=== PATIENT | male | born 1930 | race Caucasian/White ===

== ENCOUNTER → 2016-07-02 | Outpatient (CLI) | payer MEDICARE ==
[~2016-07-02] MED LIST: ALBU.5I NEB; ALBU0.086 NEB; ALBU6.7H INH; ALPR.25 PO; APIX2.5T PO; BYST5TAB2 PO; FURO20 PO; FURO20TA PO; IRON27TA PO; MEMA1TAB PO; MULTTAB22 PO; NAME5TAB2 PO; NEBI5 PO; NITR.4 SL; NITR0.4S SL; PANT40TA3 PO; POTA-163 PO; POTA20IN3 PO; PRESCAP5 PO; PROB1TAB PO; PROBCAP PO; PROT40TA PO; ROSU1TAB8 PO; ROSU20 PO; SERT25TA83 PO; SPIR25TA PO; SYMB160A INH; TAB-TAB PO; TEST200I12 IM; TEST200I13 IM; TRAZ50TA12 PO; TRAZ50TA4 PO; UMEC1AER INH; VENTAER INH; VITA200017 PO; VITRTAB3 PO; Z.0.OXYGEN INH
--- NOTE | 2016-07-03 09:32 | RSPPFT ---
DATE OF PROCEDURE: 07/02/16 COMMENTS: VOLUMES DYNAMIC: FVC mildly reduced; FEV1 moderately reduced. STATIC: FRC, RV and TLC normal. FLOWS: FEV1% moderately reduced; FEF 25-75 severely reduced. DIFFUSION: Severely reduced. FLOW VOLUME LOOP: Pattern of variable intrathoracic airways obstruction. IMPRESSION: Moderately severe obstructive ventilatory defect with a severe reduction in diffusion consistent with emphysema. Airways resistance is increased. Minimal change post-bronchodilator noted.
== END ==
LOC: PHRSP 10:34
PROVIDERS: ATTEND Internal Medicine
DX: J44.9 Chronic obstructive pulmonary disease, unspecified (principal); R06.02 Shortness of breath
CPT/HCPCS: 94060; 94620; 94726; 94729

== ENCOUNTER 2016-07-09 12:52 | Inpatient (IN) | payer MEDICARE ==
[2016-07-09] VITALS (8 sets, daily range): BP systolic 116–177; BP diastolic 70–112; PULSE 80–108; RESP 15–24; TEMP 96.9–98.7; O2SAT 77–100
[~2016-07-09] VITALS: Ht 175.3 cm; Wt 68.4 kg
[~2016-07-09 12:52] MED LIST changes: -ALBU.5I NEB; -BYST5TAB2 PO; -FURO20TA PO; -MEMA1TAB PO; -MULTTAB22 PO; -NITR0.4S SL; -PANT40TA3 PO; -POTA-163 PO; -PROBCAP PO; -ROSU20 PO; -SERT25TA83 PO; -SYMB160A INH; -TEST200I12 IM; -TRAZ50TA12 PO; -VENTAER INH; -VITRTAB3 PO
--- NOTE | 2016-07-09 13:10 | PD ---
HPI Chief Complaint: Respiratory Distress Time Seen by Provider: 12:58 Travel History International Travel<30 days: No Contact w/Intl Traveler<30days: No Traveled to known affect area: No History of Present Illness HPI Patient is an 86 year old male with history of COPD, hypertension, hyperlipidemia, CAD with hx of CABG, CHF, GERD, A. fib, stage III renal failure , presents to emergency room with complaints of COPD exacerbation. Patient reports that he has been feeling SOB for a long time and does use 2LO2 at night time. Patient reports that his shortness of breath is getting worse, reports that today, he has been having dyspnea on exertion. Reports that he had to use his home oxygen today as he felt sob. Patient reports that he did take a neb treatment prior to coming to ER with no relief of symptoms. Patient denies cough /congestion. Denies fever/chills. Reports that his chest has been feeling tight today. Patient's software quality test engineer is Dr. Smith Patient's radio frequency design engineer is Dr. 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) Psychiatric: No Reproductive: No Respiratory: Yes Sleep Apnea: No Thyroid Disease: No Past Surgical History Abdominal Surgery: No AICD: No Body Medical Devices: CARDIAC STENTS Cardiac Surgery: Yes (CABG X2, CABGX3) Coronary Artery Bypass Graft: Yes Ear Surgery: No Endocrine Surgery: No Eye Surgery: Yes (BILATERAL CATARACT) Genitourinary Surgery: Yes (PROSTATE REMOVED) Joint Replacement: No Oral Surgery: Yes (TONSILLECTOMY) Pacemaker: No Thoracic Surgery: Yes (LEFT THORACOTOMY--LOWER LOBE REMOVED) Other Surgery: Yes (MELANOMA) Social History Alcohol Use: No Tobacco Use: No Substance Use: No Allergies-Medications (Allergen,Severity, Reaction): Coded Allergies: Duoneb (Verified Allergy, Severe, SHAKY, 10/23/15) Iodine (Verified Allergy, Severe, Anaphylaxis, 10/23/15) ONLY IN SHRIMP, IS NOT ALLERGIC TO IODINATED CONTRAST PER PATIENT, IS NOT ALLERGIC TO TOPICAL BETADINE PER PATIENT. Lipitor (Unverified Allergy, Severe, SOB, JOINT PAIN, 10/23/15) Shrimp (Verified Allergy, Severe, SOB, VOMITING, 10/23/15) Wasp (Verified Allergy, Severe, Anaphylaxis, 10/23/15) Diovan (Unverified Allergy, Intermediate, PT DOESNT REMEMBER REACTION, ) Reported Meds & Prescriptions Reported Meds & Active Scripts Active Reported Testosterone Cypionate Inj (Testosterone Cypionate) 200 Mg/Ml Inj 200 Mg IM Q28D Multi For Him (Multiple Vitamins W/ Minerals) 1 Tab Tab 1 Tab PO DAILY Probiotic Mature Adult (Probiotic Product) 1 Cap Cap 1 Cap PO DAILY Albuterol Neb (Albuterol Sulfate) 2.5 Mg/0.5 Ml Neb 2.5 Mg NEB Q6HR NEB Note: The Albuterol Sulfate Inhalation Solution is concentrated and must be diluted. Read complete instructions carefully before using. Ventolin Hfa 18 GM Inh (Albuterol Sulfate) 90 Mcg/Act Aer 1 Puff INH Q4H PRN Anoro Ellipta Inh (Umeclidinium/Vilanterol) 62.5-25 Mcg/Act Aero 1 Puff INH DAILY Trazodone (Trazodone HCl) 50 Mg Tab 50 Mg PO HS Memantine 5 Mg Tab 5 Mg PO BID Sertraline (Sertraline HCl) 25 Mg Tab 25 Mg PO DAILY Vitron-C (Iron-Vitamin C) 65-125 Mg Tab 1 Tab PO DAILY Nitrostat SL (Nitroglycerin) 0.4 Mg Subl 0.4 Mg SL DIRECTED PRN 1 tablet under the tongue as needed for chest pain. Repeat every 5 minutes for a total of 3 DOSES or call 911 if NO relief. Potassium Chloride ER (Potassium Chloride) 20 Meq Tab 20 Meq PO DAILY Pantoprazole (Pantoprazole Sodium) 40 Mg Tab 40 Mg PO DAILY Bystolic (Nebivolol) 5 Mg Tab 5 Mg PO DAILY Crestor (Rosuvastatin Calcium) 20 Mg Tab 20 Mg PO DAILY Eliquis (Apixaban) 2.5 Mg Tab 2.5 Mg PO BID Furosemide 20 Mg Tab 20 Mg PO [id number] Spironolactone 25 Mg Tab 25 Mg PO // Review of Systems General / Constitutional: No: Fever Eyes: No: Visual changes HENT: No: Headaches Cardiovascular: Positive: Chest Pain or Discomfort Respiratory: Positive: Shortness of Breath, Wheezing, No: Cough Gastrointestinal: No: Abdominal Pain Genitourinary: No: Dysuria Musculoskeletal: No: Pain Skin: No Rash Neurologic: No: Weakness Psychiatric: No: Depression Endocrine: No: Polydipsia Hematologic/Lymphatic: No: Easy Bruising Physical Exam Narrative GENERAL: moderate distress SKIN: Focused skin assessment warm/dry. HEAD: Atraumatic. Normocephalic. EYES: Pupils equal and round. No scleral icterus. No injection or drainage. ENT: No nasal bleeding or discharge. Mucous membranes pink and moist. NECK: Trachea midline. No JVD. CARDIOVASCULAR: Regular rate and rhythm. No murmur appreciated. RESPIRATORY: Patient with scattered wheezing on exam, decreased breath sounds to lung bases GASTROINTESTINAL: Abdomen soft, non-tender, nondistended. Hepatic and splenic margins not palpable. MUSCULOSKELETAL: No obvious deformities. No clubbing. No cyanosis. No edema. NEUROLOGICAL: Awake and alert. No obvious cranial nerve deficits. Motor grossly within normal limits. Normal speech. PSYCHIATRIC: Appropriate mood and affect; insight and judgment normal. Data Data Last Documented VS Vital Signs Date Time Temp Pulse Resp B/P Pulse Ox O2 Delivery O2 Flow Rate FiO2 07/09/16 13:30 80 20 144/70 98 Nasal Cannula 2 07/09/16 12:55 98.7 Orders Complete Blood Count With Diff (07/09/16 13:04) Comprehensive Metabolic Panel (07/09/16 13:04) B-Type Natriuretic Peptide (07/09/16 13:04) Act Partial Throm Time (Ptt) (07/09/16 13:04) Prothrombin Time / Inr (Pt) (07/09/16 13:04) Magnesium (Mg) (07/09/16 13:04) Ckmb (Isoenzyme) Profile (07/09/16 13:04) Troponin I (07/09/16 13:04) Arterial Blood Gas (Abg) (07/09/16 13:04) Urinalysis - C+S If Indicated (07/09/16 13:04) Influenzae A/B Antigen (07/09/16 13:04) Iv Access Insert/Monitor (07/09/16 13:04) Electrocardiogram (07/09/16 13:04) Ecg Monitoring (07/09/16 13:04) Oximetry (07/09/16 13:04) Chest, Single Ap (07/09/16 13:04) Sodium Chloride 0.9% Flush (Ns Flush) (07/09/16 13:15) Methylprednisolone So Succ Inj (Solumedr (07/09/16 13:15) Albuterol Neb (Albuterol Neb) (07/09/16 13:15) Furosemide Inj (Lasix Inj) (07/09/16 14:00) CKMB (07/09/16 13:21) CKMB% (07/09/16 13:21) Levofloxacin 750 Mg Premix Inj (Levaquin (07/09/16 14:30) Labs Laboratory Tests Test 07/09/16 07/09/16 13:21 13:30 White Blood Count 6.8 TH/MM3 Red Blood Count 3.71 MIL/MM3 Hemoglobin 10.3 GM/DL Hematocrit 31.9 % Mean Corpuscular Volume 86.0 FL Mean Corpuscular Hemoglobin 27.7 PG Mean Corpuscular Hemoglobin 32.2 % Concent Red Cell Distribution Width 16.4 % Platelet Count 267 TH/MM3 Mean Platelet Volume 8.4 FL Neutrophils (%) (Auto) 68.0 % Lymphocytes (%) (Auto) 15.0 % Monocytes (%) (Auto) 13.7 % Eosinophils (%) (Auto) 2.9 % Basophils (%) (Auto) 0.4 % Neutrophils # (Auto) 4.7 TH/MM3 Lymphocytes # (Auto) 1.0 TH/MM3 Monocytes # (Auto) 0.9 TH/MM3 Eosinophils # (Auto) 0.2 TH/MM3 Basophils # (Auto) 0.0 TH/MM3 CBC Comment DIFF FINAL Differential Comment Prothrombin Time 12.7 SEC Prothromb Time International 1.1 RATIO Ratio Activated Partial 31.7 SEC Thromboplast Time Sodium Level 141 MEQ/L Potassium Level 4.5 MEQ/L Chloride Level 105 MEQ/L Carbon Dioxide Level 27.4 MEQ/L Anion Gap 9 MEQ/L Blood Urea Nitrogen 22 MG/DL Creatinine 1.70 MG/DL Estimat Glomerular Filtration 38 ML/MIN Rate Random Glucose 106 MG/DL Calcium Level 9.0 MG/DL Magnesium Level 2.2 MG/DL Total Bilirubin 0.7 MG/DL Aspartate Amino Transf 22 U/L (AST/SGOT) Alanine Aminotransferase 28 U/L (ALT/SGPT) Alkaline Phosphatase 82 U/L Total Creatine Kinase 125 U/L Creatine Kinase MB 3.5 NG/ML Troponin I 0.03 NG/ML B-Type Natriuretic Peptide 223 PG/ML Total Protein 7.4 GM/DL Albumin 3.8 GM/DL Blood Gas Puncture Site RT RADIAL Blood Gas Patient Temperature 98.6 Blood Gas HCO3 23 mmol/L Blood Gas Base Excess -1.0 mmol/L Blood Gas Oxygen Saturation 87 % Arterial Blood pH 7.42 Arterial Blood Partial 35 mmHG Pressure CO2 Arterial Blood Partial 60 mmHG Pressure O2 Arterial Blood Oxygen Content 11.7 Vol % Arterial Blood 2.2 % Carboxyhemoglobin Arterial Blood Methemoglobin 1.0 % Blood Gas Hemoglobin 9.5 G/DL Oxygen Delivery Device ROOM AIR Blood Gas Inspired Oxygen 21 % MDM Medical Decision Making Medical Screen Exam Complete: Yes Emergency Medical Condition: Yes Interpretation(s) Vital Signs Date Time Temp Pulse Resp B/P Pulse Ox O2 Delivery O2 Flow Rate FiO2 07/09/16 12:55 98.7 86 24 177/112 77 Differential Diagnosis COPD exacerbation, GERD, ACS, pneumothorax, pneumonia, influenza Narrative Course Patient is a 86 year old male who presents to ER with complaint of shortness of breath. Patient reports that he "always feels sob" but reports that symptoms were worse today. Patient reports that he felt so sob, he had to use his home oxygen as he only uses this at night time. Reports no cough/congestion. Reports that his chest does feel tight. Reports no fever/chills. Patient was hypoxic upon arrival to ER, pt's oxygen saturation was 77 on 3LNC, when patient was brought back to the ER, patient was placed on non-rebreather and pulse ox went up to 100% Patient is wheezing on exam, decreased breath sounds at lung bases. IV steroids , neb treatments ordered. patient reports that he can't take duonebs - he is unsure why, but reports that he is able to tolerate albuterol treatments. Patient was placed on cardiac monitor technician, labs as well as studies ordered including xray of chest. Laboratory Tests Test 07/09/16 07/09/16 13:21 13:30 White Blood Count 6.8 TH/MM3 (4.0-11.0) Red Blood Count 3.71 MIL/MM3 (4.50-5.90) Hemoglobin 10.3 GM/DL (13.0-17.0) Hematocrit 31.9 % (39.0-51.0) Mean Corpuscular Volume 86.0 FL (80.0-100.0) Mean Corpuscular Hemoglobin 27.7 PG (27.0-34.0) Mean Corpuscular Hemoglobin 32.2 % Concent (32.0-36.0) Red Cell Distribution Width 16.4 % (11.6-17.2) Platelet Count 267 TH/MM3 (150-450) Mean Platelet Volume 8.4 FL (7.0-11.0) Neutrophils (%) (Auto) 68.0 % (16.0-70.0) Lymphocytes (%) (Auto) 15.0 % (9.0-44.0) Monocytes (%) (Auto) 13.7 % (0.0-8.0) Eosinophils (%) (Auto) 2.9 % (0.0-4.0) Basophils (%) (Auto) 0.4 % (0.0-2.0) Neutrophils # (Auto) 4.7 TH/MM3 (1.8-7.7) Lymphocytes # (Auto) 1.0 TH/MM3 (1.0-4.8) Monocytes # (Auto) 0.9 TH/MM3 (0-0.9) Eosinophils # (Auto) 0.2 TH/MM3 (0-0.4) Basophils # (Auto) 0.0 TH/MM3 (0-0.2) CBC Comment DIFF FINAL Differential Comment Prothrombin Time 12.7 SEC (9.8-11.6) Prothromb Time International 1.1 RATIO Ratio Activated Partial 31.7 SEC Thromboplast Time (24.3-30.1) Sodium Level 141 MEQ/L (136-145) Potassium Level 4.5 MEQ/L (3.5-5.1) Chloride Level 105 MEQ/L (98-107) Carbon Dioxide Level 27.4 MEQ/L (21.0-32.0) Anion Gap 9 MEQ/L (5-15) Blood Urea Nitrogen 22 MG/DL (7-18) Creatinine 1.70 MG/DL (0.60-1.30) Estimat Glomerular Filtration 38 ML/MIN (>89) Rate Random Glucose 106 MG/DL (74-106) Calcium Level 9.0 MG/DL (8.5-10.1) Magnesium Level 2.2 MG/DL (1.5-2.5) Total Bilirubin 0.7 MG/DL (0.2-1.0) Aspartate Amino Transf 22 U/L (15-37) (AST/SGOT) Alanine Aminotransferase 28 U/L (12-78) (ALT/SGPT) Alkaline Phosphatase 82 U/L (45-117) Total Creatine Kinase 125 U/L (39-308) Troponin I 0.03 NG/ML (0.02-0.05) B-Type Natriuretic Peptide 223 PG/ML (0-100) Total Protein 7.4 GM/DL (6.4-8.2) Albumin 3.8 GM/DL (3.4-5.0) Blood Gas Puncture Site RT RADIAL Blood Gas Patient Temperature 98.6 Blood Gas HCO3 23 mmol/L (22-26) Blood Gas Base Excess -1.0 mmol/L (-2-2) Blood Gas Oxygen Saturation 87 % (90-100) Arterial Blood pH 7.42 (7.380-7.420) Arterial Blood Partial 35 mmHG (38-42) Pressure CO2 Arterial Blood Partial 60 mmHG Pressure O2 (61-120) Arterial Blood Oxygen Content 11.7 Vol % (12.0-20.0) Arterial Blood 2.2 % (0-4) Carboxyhemoglobin Arterial Blood Methemoglobin 1.0 % (0-2) Blood Gas Hemoglobin 9.5 G/DL (12.0-16.0) Oxygen Delivery Device ROOM AIR Blood Gas Inspired Oxygen 21 % Last Impressions Chest X-Ray 07/09/16 1304 Signed Impressions: Service Date/Time: Saturday, July 09, 2016 13:16 - CONCLUSION: CHF with pulmonary edema. Franklin Jovel MD Patient re-evaluated, feeling much better at this time. Currently 98% on 2L NC after treatments and iv lasix case reviewed with Dr. Souza who accepts pt to service Critical Care Narrative Aggregate critical care time was 45 minutes. Time to perform other separately billable procedures was not included in the critical care time. My time did not include minutes spent treating any other patients simultaneously or on activities that did not directly contribute to the patient's treatment. The services I provided to this patient were to treat and/or prevent clinically significant deterioration that could result in: , decompensation, deterioration I provided critical care services requiring my management, as noted below: Chart data review, documentation time, medication orders and management, vital sign assessments/reviewing monitor data, ordering and reviewing lab tests, ordering and interpreting/reviewing x-rays and diagnostic studies, care of the patient and discussion of the patient with the admitting physicians. Diagnosis Primary Impression: Hypoxia Additional Impressions: COPD exacerbation CHF (congestive heart failure) Admitting Information Admitting Physician Requests: Irina Benites DO July 09, 2016 13:10
[2016-07-09] MEDS: RESP: ALBUTEROL 2.5 MG/3 ML NEB (SCH) INH ×2 (13:12→13:13)
[2016-07-09] MEDS ORDERED: methylPREDNISolone SOD SUCC 125 MG/2 ML VIAL IVP ONE (13:15)
--- NOTE | 2016-07-09 13:30 | RADHPO ---
EXAM DATE/TIME: 07/09/2016 13:16 [facility] COMPARISON: CHEST SINGLE AP, September 19, 2015, 13:39. INDICATIONS : Short of breath MEDICAL HISTORY : Hypercholesterolemia. Hypertension Chronic obstructive pulmonary disease. SURGICAL HISTORY : CABG. Cardiac catherization ENCOUNTER: Initial ACUITY: 2 days PAIN SCORE: 2/10 LOCATION: Bilateral chest FINDINGS: A single view of the chest demonstrates cardiomegaly with bibasilar airspace disease and pulmonary ed macy. Fluid in the right fissures. Osseous structures are intact. CONCLUSION: CHF with pulmonary edema. Franklin Jovel MD on July 09, 2016 at 13:24 Board Certified Radiologist. This report was verified electronically.
[2016-07-09 13:39] LABS: BLOOD GAS CARBOXYHEMOGLOBIN 2.2 % (0-4); BLOOD GAS HCO3 23 mmol/L (22-26); BLOOD GAS O2 HGB SATURATION 87 % (90-100); BLOOD GAS OXYGEN CONTENT 11.7 Vol % (12.0-20.0); BLOOD GAS PCO2 35 mmHG (38-42); BLOOD GAS PO2 60 mmHG (61-120); BLOOD GAS TOTAL HGB 9.5 G/DL (12.0-16.0); CRITICAL VALUE YES; FIO2 21 %; OXYGEN DEVICE ROOM AIR; TEMP CORR TO 98.6
[2016-07-09 13:40] LABS: DRAW SITE RT RADIAL; NUMBER OF ARTERIAL PUNCTURES 1; STAT YES; ULNAR PULSE PRESENT
[2016-07-09] MEDS ORDERED: NITR0.4S SL (13:41)
[2016-07-09] MEDS ORDERED: PANT40TA3 PO (13:41)
[2016-07-09] MEDS ORDERED: APIX2.5T PO (13:41)
[2016-07-09] MEDS ORDERED: TEST200I12 IM (13:41)
[2016-07-09] MEDS ORDERED: POTA-163 PO (13:41)
[2016-07-09] MEDS ORDERED: MULTTAB22 PO (13:41)
[2016-07-09] MEDS ORDERED: PROBCAP PO (13:41)
[2016-07-09] MEDS ORDERED: SPIR25TA PO (13:41)
[2016-07-09] MEDS ORDERED: UMEC1AER INH (13:41)
[2016-07-09] MEDS ORDERED: FURO20TA PO (13:41)
[2016-07-09] MEDS ORDERED: VENTAER INH (13:41)
[2016-07-09] MEDS ORDERED: VITRTAB3 PO (13:41)
[2016-07-09] MEDS ORDERED: TRAZ50TA12 PO (13:41)
[2016-07-09] MEDS ORDERED: SERT25TA83 PO (13:41)
[2016-07-09] MEDS ORDERED: MEMA1TAB PO (13:41)
[2016-07-09] MEDS ORDERED: BYST5TAB2 PO (13:41)
[2016-07-09] MEDS ORDERED: ROSU20 PO (13:41)
[2016-07-09] MEDS ORDERED: ALBU.5I NEB (13:41)
[2016-07-09 13:42] LABS: AUTOMATED NEUTROPHIL # 4.7 TH/MM3 (1.8-7.7); BASOPHIL % 0.4 % (0.0-2.0); EOSINOPHIL # 0.2 TH/MM3 (0-0.4); EOSINOPHIL % 2.9 % (0.0-4.0); HEMATOCRIT 31.9 % (39.0-51.0); HEMO FLAGS DIFF FINAL; MEAN CORPUSCULAR HEMOGLOBIN 27.7 PG (27.0-34.0); MEAN CORPUSCULAR HGB CONC 32.2 % (32.0-36.0); MONO % 13.7 % (0.0-8.0); PLATELET COUNT 267 TH/MM3 (150-450); RED BLOOD COUNT 3.71 MIL/MM3 (4.50-5.90); RED CELL DISTRIBUTION WIDTH 16.4 % (11.6-17.2); WHITE BLOOD COUNT 6.8 TH/MM3 (4.0-11.0)
[2016-07-09] MEDS: SODIUM CHLORIDE 0.9% FLUSH 10 ML FLUSH IVF PRN ×2 (13:44→14:01)
[2016-07-09 13:51] LABS: CHLORIDE 105 MEQ/L (98-107); POTASSIUM 4.5 MEQ/L (3.5-5.1); SODIUM (NA) 141 MEQ/L (136-145)
[2016-07-09 13:55] LABS: ANION GAP 9 MEQ/L (5-15); APTT (PATIENT) 31.7 SEC (24.3-30.1); BICARBONATE 27.4 MEQ/L (21.0-32.0); BLOOD UREA NITROGEN 22 MG/DL (7-18); INTERNATIONAL NORMALIZED RATIO 1.1 RATIO; MAGNESIUM 2.2 MG/DL (1.5-2.5); PROTHROMBIN TIME - PATIENT 12.7 SEC (9.8-11.6)
[2016-07-09 13:58] LABS: ALT (GPT) 28 U/L (12-78); AST (GOT) 22 U/L (15-37); GLOMERULAR FILTRATION RATE 38 ML/MIN (>89)
[2016-07-09 13:59] LABS: TOTAL BILIRUBIN ADULT 0.7 MG/DL (0.2-1.0)
[2016-07-09 14:00] LABS: CREATINE KINASE 125 U/L (39-308)
[2016-07-09] MEDS ORDERED: FUROSEMIDE 100 MG/10 ML VIAL IV PUSH ONE (14:00)
[2016-07-09 14:01] LABS: ALKALINE PHOSPHATASE 82 U/L (45-117)
[2016-07-09 14:14] LABS: CKMB 3.5 NG/ML (0.5-3.6)
[2016-07-09 14:20] LABS: BLOOD, URINE NEG (NEG); GLUCOSE,URINE NEG (NEG); KETONE, URINE NEG (NEG); NITRITE,URINE NEG (NEG); PH, URINE 5.5 (5.0-8.5)
[2016-07-09 14:28] LABS: COMMENT (UR) CULT NOT INDICATED; CULTURE IF INDICATED CULT NOT INDICATED; METHOD OF COLLECTION CLEAN CATCH; RBC, URINE 0-3 /hpf (0-3); SQUAMOUS EPITHELIAL CELL URINE 0-5 /hpf (0-5); URINE COLOR YELLOW (YELLW/STRAW); WBC, URINE 0-2 /hpf (0-5)
[2016-07-09] MEDS ORDERED: LEVOFLOXACIN 750 MG PREMIX INJ 150 ML IV ONE (14:30)
[2016-07-09] MEDS ORDERED: ACETAMINOPHEN 325 MG TAB PO PRN (14:45)
[2016-07-09] MEDS ORDERED: SODIUM CHLORIDE 0.9% FLUSH 10 ML FLUSH IV FLUSH PRN (14:45)
[2016-07-09] MEDS ORDERED: BISACODYL 10 MG SUPP RECTAL PRN (14:45)
[2016-07-09] MEDS ORDERED: ONDANSETRON HCL 4 MG/2 ML VIAL IVP PRN (14:45)
[2016-07-09] MEDS ORDERED: NALOXONE HCL 0.4 MG/ML AMP IV PRN (14:45)
[2016-07-09] MEDS ORDERED: SENNOSIDES 8.6 MG TAB PO PRN (14:45)
[2016-07-09] MEDS ORDERED: RESP: ALBUTEROL 2.5 MG/IPRATROPIUM 0.5 MG NEB (PRN) NEB (15:00)
--- NOTE | 2016-07-09 15:09 | HHI.HP ---
[facility] Primary Care Physician Mandi Calvert MD Admission Diagnosis COPD exacerbation, hypoxia Diagnoses: (1) Acute on chronic systolic congestive heart failure Diagnosis: Principal (2) Accelerated hypertension Diagnosis: Principal (3) Hypoxia Diagnosis: Principal (4) Chronic respiratory failure with hypoxia Diagnosis: Secondary (5) Chronic obstructive pulmonary disease Diagnosis: Secondary (6) Chronic atrial fibrillation Diagnosis: Secondary Chief Complaint: Shortness of breath and dyspnea on exertion Travel History International Travel<30 Days: No Contact w/Intl Traveler <30 Da: No Traveled to Known Affected Are: No History of Present Illness 86 year-old male with rather extensive medical history of hypertension , hyperlipidemia, coronary artery disease, history myocardial infarction, status post 2 open heart surgeries, systolic congestive heart failure, moderate to severe chronic obstructive pulmonary disease, chronic hypoxic respiratory failure, chronic kidney disease stage III, gastroesophageal reflux who presented to hospital because of shortness of breath and dyspnea. Patient has had recent workup done in outpatient setting by his operating room specialist Dr. Barajas. The patient and his daughter indicated that he had echocardiogram done at that time. Patient has had increase in his renal functions in which he was notified to increase his fluid intake. Patient states that he is drinking at least 3-20 ounce bottles of water daily. For the last couple days the patient has noted significant shortness of breath. This progressively gotten to the point where he cannot get up and walk because he has significant dyspnea on exertion. Patient does have chronic respiratory failure is on oxygen at home. Mainly at night, however over the last week he has been using it more often during the day whenever he exerts himself. He denies any fever, cough, congestion, sputum production, chest pain, lower extremity edema. Patient came to emergency department for evaluation and patient had accelerated hypertension, hypoxia, chest x-ray with pulmonary edema. Patient was given Lasix 80 mg IV emergency department with significant relief. Patient states that he is feeling much better this time. His respiratory status did require him to be on nonrebreather at 100% on presentation, however he is now down to 2 L nasal cannula at 98% O2 saturations. Review of Systems Constitutional: DENIES: Diaphoretic episodes, Fatigue, Fever, Weight gain, Weight loss, Chills, Dizziness, Change in appetite, Night Sweats Eyes: DENIES: Blurred vision, Diplopia, Eye inflammation, Eye pain, Vision loss , Double Vision Ears, nose, mouth, throat: DENIES: Vertigo, Nasal discharge, Throat pain, Ear Pain, Running Nose, Sinus Pain Respiratory: COMPLAINS OF: Shortness of breath, DENIES: Apneas, Cough, Snoring , Wheezing, Hemoptysis, Sputum production Cardiovascular: COMPLAINS OF: Dyspnea on Exertion, DENIES: Chest pain, Palpitations, Syncope, Lower Extremity Edema, Orthopnea Gastrointestinal: DENIES: Abdominal pain, Black stools, Bloody stools, Constipation, Diarrhea, Nausea, Vomiting, Difficulty Swallowing, Anorexia Neurologic: DENIES: Abnormal gait, Headache, Localized weakness, Paresthesias, Seizures, Speech Problems, Tremor, Poor Balance Past Family Social History Past Medical History Hypertension Hyperlipidemia Chronic atrial fibrillation Chronic systolic congestive heart failure History myocardial infarction Coronary artery disease Chronic obstructive pulmonary disease Gastroesophageal reflux Loera's esophagus Chronic kidney disease stage III Past Surgical History Tonsillectomy Facial reconstruction Cardiac catheterization with stent placement 2004 Allow cataract surgery Radical prostatectomy Melanoma removal Coronary bypass surgery 2 Left left lower lung lobectomy Reported Medications Reported Meds & Active Scripts Active Reported Testosterone Cypionate Inj (Testosterone Cypionate) 200 Mg/Ml Inj 200 Mg IM Q28D Multi For Him (Multiple Vitamins W/ Minerals) 1 Tab Tab 1 Tab PO DAILY Probiotic Mature Adult (Probiotic Product) 1 Cap Cap 1 Cap PO DAILY Albuterol Neb (Albuterol Sulfate) 2.5 Mg/0.5 Ml Neb 2.5 Mg NEB Q6HR NEB Note: The Albuterol Sulfate Inhalation Solution is concentrated and must be diluted. Read complete instructions carefully before using. Ventolin Hfa 18 GM Inh (Albuterol Sulfate) 90 Mcg/Act Aer 1 Puff INH Q4H PRN Anoro Ellipta Inh (Umeclidinium/Vilanterol) 62.5-25 Mcg/Act Aero 1 Puff INH DAILY Trazodone (Trazodone HCl) 50 Mg Tab 50 Mg PO HS Memantine 5 Mg Tab 5 Mg PO BID Sertraline (Sertraline HCl) 25 Mg Tab 25 Mg PO DAILY Vitron-C (Iron-Vitamin C) 65-125 Mg Tab 1 Tab PO DAILY Nitrostat SL (Nitroglycerin) 0.4 Mg Subl 0.4 Mg SL DIRECTED PRN 1 tablet under the tongue as needed for chest pain. Repeat every 5 minutes for a total of 3 DOSES or call 911 if NO relief. Potassium Chloride ER (Potassium Chloride) 20 Meq Tab 20 Meq PO DAILY Pantoprazole (Pantoprazole Sodium) 40 Mg Tab 40 Mg PO DAILY Bystolic (Nebivolol) 5 Mg Tab 5 Mg PO DAILY Crestor (Rosuvastatin Calcium) 20 Mg Tab 20 Mg PO DAILY Eliquis (Apixaban) 2.5 Mg Tab 2.5 Mg PO BID Furosemide 20 Mg Tab 20 Mg PO Spironolactone 25 Mg Tab 25 Mg PO // Allergies: Coded Allergies: Duoneb (Verified Allergy, Severe, SHAKY, 10/23/15) Iodine (Verified Allergy, Severe, Anaphylaxis, 10/23/15) ONLY IN SHRIMP, IS NOT ALLERGIC TO IODINATED CONTRAST PER PATIENT, IS NOT ALLERGIC TO TOPICAL BETADINE PER PATIENT. Lipitor (Unverified Allergy, Severe, SOB, JOINT PAIN, 10/23/15) Shrimp (Verified Allergy, Severe, SOB, VOMITING, 10/23/15) Wasp (Verified Allergy, Severe, Anaphylaxis, 10/23/15) Diovan (Unverified Allergy, Intermediate, PT DOESNT REMEMBER REACTION, ) Family History Reviewed and patient does not know his mother and father's medical history Social History Patient quit smoking in [address] to have his first bypass surgery. Denies any alcohol or illicit drugs Physical Exam Vital Signs Vital Signs Date Time Temp Pulse Resp B/P Pulse Ox O2 Delivery O2 Flow Rate FiO2 07/09/16 13:30 80 20 144/70 98 Nasal Cannula 2 07/09/16 13:15 100 Non-Rebreather 07/09/16 13:00 100 Non-Rebreather 07/09/16 12:55 98.7 86 24 177/112 77 Physical Exam GENERAL: Well-developed, well-nourished, in no acute distress. alert and orientated HEENT: Head is normocephalic without any lesions or masses noted. Facial features are symmetric. Eyes: Pupils equal round reactive to light. Extraocular muscles are intact. Conjunctivae were clear. Oropharyngeal: Pharynx without any erythema edema. Tongue is midline without deviation. Buccal mucosa is moist without any masses or lesions NECK: Supple without any masses. Trachea midline no deviation. No JVD, no bruits are appreciated CARDIAC: Regular rhythm, regular rate. S1/S2 are heard. 2/6 ejection murmur noted in aortic region gallops or rubs. LUNGS: Mild wheeze noted in the right lower lung field, left lung field appreciated fine crackles, no rhonchi. No use of accessory muscles on inspiration or expiration. ABDOMEN: Soft, nontender. Nondistended. Bowel sounds heard in all 4 quadrants. No organomegaly or masses. Negative rebound, negative guarding EXTREMITIES: No edema, pulses are equal bilaterally. No cyanosis or clubbing NEUROLOGY: Mood and affect appear appropriate. Cranial nerves II through XII grossly intact. Muscle strength 5/5 in upper and lower extremities bilaterally. Deep tendon reflexes are 2+ in upper and lower extremities bilaterally. Laboratory Laboratory Tests Test 07/09/16 07/09/16 07/09/16 13:21 13:30 14:11 White Blood Count 6.8 Red Blood Count 3.71 Hemoglobin 10.3 Hematocrit 31.9 Mean Corpuscular Volume 86.0 Mean Corpuscular Hemoglobin 27.7 Mean Corpuscular Hemoglobin 32.2 Concent Red Cell Distribution Width 16.4 Platelet Count 267 Mean Platelet Volume 8.4 Neutrophils (%) (Auto) 68.0 Lymphocytes (%) (Auto) 15.0 Monocytes (%) (Auto) 13.7 Eosinophils (%) (Auto) 2.9 Basophils (%) (Auto) 0.4 Neutrophils # (Auto) 4.7 Lymphocytes # (Auto) 1.0 Monocytes # (Auto) 0.9 Eosinophils # (Auto) 0.2 Basophils # (Auto) 0.0 CBC Comment DIFF FINAL Differential Comment Prothrombin Time 12.7 Prothromb Time International 1.1 Ratio Activated Partial 31.7 Thromboplast Time Sodium Level 141 Potassium Level 4.5 Chloride Level 105 Carbon Dioxide Level 27.4 Anion Gap 9 Blood Urea Nitrogen 22 Creatinine 1.70 Estimat Glomerular Filtration 38 Rate Random Glucose 106 Calcium Level 9.0 Magnesium Level 2.2 Total Bilirubin 0.7 Aspartate Amino Transf 22 (AST/SGOT) Alanine Aminotransferase 28 (ALT/SGPT) Alkaline Phosphatase 82 Total Creatine Kinase 125 Creatine Kinase MB 3.5 Troponin I 0.03 B-Type Natriuretic Peptide 223 Total Protein 7.4 Albumin 3.8 Blood Gas Puncture Site RT RADIAL Blood Gas Patient Temperature 98.6 Blood Gas HCO3 23 Blood Gas Base Excess -1.0 Blood Gas Oxygen Saturation 87 Arterial Blood pH 7.42 Arterial Blood Partial 35 Pressure CO2 Arterial Blood Partial 60 Pressure O2 Arterial Blood Oxygen Content 11.7 Arterial Blood 2.2 Carboxyhemoglobin Arterial Blood Methemoglobin 1.0 Blood Gas Hemoglobin 9.5 Oxygen Delivery Device ROOM AIR Blood Gas Inspired Oxygen 21 Urine Collection Type CLEAN CATCH Urine Color YELLOW Urine Turbidity CLEAR Urine pH 5.5 Urine Specific [place] 1.009 Urine Protein NEG Urine Glucose (UA) NEG Urine Ketones NEG Urine Occult Blood NEG Urine Nitrite NEG Urine Bilirubin NEG Urine Leukocyte Esterase NEG Urine RBC 0-3 Urine WBC 0-2 Urine Squamous Epithelial 0-5 Cells Microscopic Urinalysis Comment CULT NOT INDICATED Urine Collection Time 14:11 Date/Time Procedure Status Source Growth 07/09/16 13:12 Influenza Types A,B Antigen (DORITA) - Final Complete Nasal Aspirate NEGATIVE FOR FLU A AND B ANTIGEN.... Result Diagram: 07/09/16 1321 07/09/16 1321 Imaging Last Impressions Chest X-Ray 07/09/16 1304 Signed Impressions: Service Date/Time: Thursday, July 09, 2016 13:16 - CONCLUSION: CHF with pulmonary edema. Franklin Jovel MD Assessment and Plan Assessment and Plan Acute hypoxic on C. respiratory failure secondary to CHF / Flush pulmonary edema Acute on chronic systolic congestive heart failure, improved post diuresis Likely complicated by accelerated hypertension, increased fluid intake over the last month Chest x-ray does indicate significant pulmonary edema with mildly elevated BNP Status post Lasix 80 mg IV in emergency department with significant improvement Dr. Barajas is his primary operating room specialist, they indicate that he is had a recent echocardiogram done approximately one month ago Continue diuresis with Lasix 40 mg IV twice daily Patient continued on beta belen, patient is allergic to Diovan, will avoid TRISHA inhibitor/ARB due to JOURDAN Strict input and output monitoring Accelerated hypertension, improved at this time after use of Lasix Continue home medications Monitor blood pressure closely COPD Continue O2 supplementation maintain O2 sats greater 92% Albuterol nebs QID and every 2 hours as needed for shortness of breath and dyspnea Symbicort inhaler Chronic atrial fibrillation Heart rate is controlled Continue beta belen Continue Eliquis for anticoagulation mild JOURDAN on Chronic kidney disease stage III Continue monitor renal function Avoid nephrotoxins Coronary artery disease, hyperlipidemia, Home medications have been continued DVT prevention Anticoagulated with Eliquis Written by Lucas Jack, acting as scribe for Dr. Souza on 07/09/16 at 15: 04. Problem Qualifiers (1) Chronic obstructive pulmonary disease: Qualified Code: J44.9 - Chronic obstructive pulmonary disease, unspecified COPD type Lucas Jack July 09, 2016 15:09 Alonso Souza MD July 10, 2016 09:12
[2016-07-09] MEDS ORDERED: RESP: ALBUTEROL 2.5 MG/IPRATROPIUM 0.5 MG NEB (SCH) NEB (16:00)
[2016-07-09] MEDS ORDERED: RESP: ALBUTEROL 2.5 MG/3 ML NEB (PRN) NEB (16:15)
[2016-07-09] MEDS: RESP: ALBUTEROL 2.5 MG/3 ML NEB (SCH) NEB ×2 (16:17→19:01)
[2016-07-09] MEDS: BUDESONIDE-FORMOTEROL 160/4.5 MCG INHALER INH SCH (21:21)
[2016-07-09] MEDS: traZODone HCL 50 MG TAB PO SCH (21:21)
[2016-07-09] MEDS: APIXABAN 2.5 MG TABLET PO SCH (21:21)
[2016-07-09] MEDS: MEMANTINE HCL 5 MG TAB PO SCH (21:21)
[2016-07-09] MEDS: SODIUM CHLORIDE 0.9% FLUSH 10 ML FLUSH IV FLUSH SCH (21:22)
[2016-07-10] VITALS (8 sets, daily range): BP systolic 111–137; BP diastolic 59–73; PULSE 61–96; RESP 16–22; TEMP 96.3–97.7; O2SAT 92–98
[2016-07-10 06:31] LABS: AUTOMATED NEUTROPHIL # 5.4 TH/MM3 (1.8-7.7); EOSINOPHIL % 0.2 % (0.0-4.0); HEMATOCRIT 28.6 % (39.0-51.0); HEMO FLAGS DIFF FINAL; LYMPH % 6.8 % (9.0-44.0); LYMPHOCYTE # 0.4 TH/MM3 (1.0-4.8); MEAN CELL VOLUME 82.8 FL (80.0-100.0); MEAN CORPUSCULAR HEMOGLOBIN 27.7 PG (27.0-34.0); MEAN CORPUSCULAR HGB CONC 33.5 % (32.0-36.0); MONO % 7.5 % (0.0-8.0); NEUT % 85.5 % (16.0-70.0); PLATELET COUNT 288 TH/MM3 (150-450); RED BLOOD COUNT 3.45 MIL/MM3 (4.50-5.90); RED CELL DISTRIBUTION WIDTH 15.9 % (11.6-17.2); WHITE BLOOD COUNT 6.3 TH/MM3 (4.0-11.0)
[2016-07-10] MEDS: RESP: ALBUTEROL 2.5 MG/3 ML NEB (SCH) NEB ×4 (07:39→19:25)
[2016-07-10] MEDS: MEMANTINE HCL 5 MG TAB PO SCH ×2 (08:12→21:12)
[2016-07-10] MEDS: SPIRONOLACTONE 25 MG TAB PO SCH (08:12)
[2016-07-10] MEDS: NEBIVOLOL 5 MG TAB PO SCH (08:12)
[2016-07-10] MEDS: PANTOPRAZOLE SOD 40 MG DELAYED RELEASE TAB PO SCH (08:12)
[2016-07-10] MEDS: SERTRALINE HCL 50 MG TAB PO SCH (08:13)
[2016-07-10] MEDS: SODIUM CHLORIDE 0.9% FLUSH 10 ML FLUSH IV FLUSH SCH ×2 (08:14→21:15)
[2016-07-10] MEDS: FUROSEMIDE 40 MG/4 ML VIAL IV PUSH SCH ×2 (08:14→17:35)
[2016-07-10] MEDS: APIXABAN 2.5 MG TABLET PO SCH ×2 (08:15→21:13)
[2016-07-10] MEDS: BUDESONIDE-FORMOTEROL 160/4.5 MCG INHALER INH SCH ×2 (08:52→21:13)
[2016-07-10] MEDS ORDERED: CRESTOR 20 MG PO SCH (09:00)
[2016-07-10] MEDS ORDERED: ASCORBIC ACID 500 MG TAB PO SCH (09:00)
[2016-07-10] MEDS ORDERED: POTASSIUM CHLORIDE 20 MEQ CONTROLLED RELEASE TAB PO SCH (09:00)
--- NOTE | 2016-07-10 11:30 | HHI.PR ---
Subjective Remarks Patient resting in bed on nasal cannula O2 He's doing physical therapy He told me breathing is better today PT reported to me improved mobility Objective Vitals Vital Signs Date Time Temp Pulse Resp B/P Pulse Ox O2 Delivery O2 Flow Rate FiO2 07/10/16 08:00 96.3 61 16 128/63 98 07/10/16 07:40 92 Nasal Cannula 2.00 07/10/16 04:00 97.4 76 22 125/64 95 07/10/16 00:00 97.7 84 22 111/59 94 07/09/16 20:00 96.9 108 17 140/71 96 07/09/16 19:00 92 Nasal Cannula 2.00 07/09/16 17:06 97.2 93 15 167/87 98 07/09/16 14:55 97 20 116/75 98 Nasal Cannula 2 07/09/16 13:30 80 20 144/70 98 Nasal Cannula 2 07/09/16 13:15 100 Non-Rebreather 07/09/16 13:12 94 Nasal Cannula 2.00 07/09/16 13:00 100 Non-Rebreather 07/09/16 12:55 98.7 86 24 177/112 77 I/O 07/09/16 07/09/16 07/09/16 07/10/16 07/10/16 07/10/16 07:00 15:00 23:00 07:00 15:00 23:00 Intake Total 450 ml 200 ml Output Total 1500 ml 450 ml 960 ml Balance -1500 ml 0 ml -760 ml Intake Oral 450 ml 200 ml Output Urine Total 1500 ml 450 ml 960 ml # Voids 1 2 # Bowel Movements 0 Result Diagram: 07/10/16 0455 07/10/16 0455 Imaging Last Impressions Chest X-Ray 07/09/16 1304 Signed Impressions: Service Date/Time: Saturday, July 09, 2016 13:16 - CONCLUSION: CHF with pulmonary edema. Franklin Jovel MD Objective Remarks GENERAL: Well-developed, well-nourished, in no acute distress. alert and orientated HEENT: Head is normocephalic without any lesions or masses noted. Facial features are symmetric. Eyes: Pupils equal round reactive to light. Extraocular muscles are intact. Conjunctivae were clear. Oropharyngeal: Pharynx without any erythema edema. Tongue is midline without deviation. Buccal mucosa is moist without any masses or lesions NECK: Supple without any masses. Trachea midline no deviation. No JVD, no bruits are appreciated CARDIAC: Regular rhythm, regular rate. S1/S2 are heard. 2/6 ejection murmur noted in aortic region gallops or rubs. LUNGS: Mild wheeze noted in the right lower lung field, left lung field appreciated fine crackles, no rhonchi. No use of accessory muscles on inspiration or expiration. ABDOMEN: Soft, nontender. Nondistended. Bowel sounds heard in all 4 quadrants. No organomegaly or masses. Negative rebound, negative guarding EXTREMITIES: No edema, pulses are equal bilaterally. No cyanosis or clubbing NEUROLOGY: Mood and affect appear appropriate. Awake alert oriented moves all extremity A/P Problem List: (1) Acute on chronic systolic congestive heart failure ICD Code: I50.23 Status: Acute (2) Accelerated hypertension ICD Code: I10 Status: Acute (3) Hypoxia ICD Code: R09.02 Status: Acute (4) Chronic respiratory failure with hypoxia ICD Code: J96.11 Status: Acute (5) Chronic obstructive pulmonary disease ICD Code: J44.9 Status: Acute (6) Chronic atrial fibrillation ICD Code: I48.2 Status: Acute Assessment and Plan 07/10: BnP continue to rise from 223-247, creatinine 1.7 increased to 1.8, continue diuresing a monitoring BMP, LACEY A/P: Acute hypoxic on C. respiratory failure secondary to CHF / Flush pulmonary edema Acute on chronic systolic congestive heart failure, improved post diuresis Likely complicated by accelerated hypertension, increased fluid intake over the last month Chest x-ray does indicate significant pulmonary edema with mildly elevated BNP Status post Lasix 80 mg IV in emergency department with significant improvement Dr. Barajas is his primary stock worker, they indicate that he is had a recent echocardiogram done approximately one month ago Continue diuresis with Lasix 40 mg IV twice daily Patient continued on beta belen, patient is allergic to Diovan, will avoid TRISHA inhibitor/ARB due to JOURDAN Strict input and output monitoring Accelerated hypertension, improved at this time after use of Lasix Continue home medications Monitor blood pressure closely COPD Continue O2 supplementation maintain O2 sats greater 92% Albuterol nebs QID and every 2 hours as needed for shortness of breath and dyspnea Symbicort inhaler Chronic atrial fibrillation Heart rate is controlled Continue beta belen Continue Eliquis for anticoagulation mild JOURDAN on Chronic kidney disease stage III Continue monitor renal function Avoid nephrotoxins Coronary artery disease, hyperlipidemia, Home medications have been continued DVT prevention Anticoagulated with Eliquis Problem Qualifiers (1) Chronic obstructive pulmonary disease: Qualified Code: J44.9 - Chronic obstructive pulmonary disease, unspecified COPD type Alonso Souza MD July 10, 2016 11:30
--- NOTE | 2016-07-10 15:44 | EKG ---
Date Performed: 07/09/2016 Time Performed: 13:04:24 PTAGE: 86 years EKG: Atrial fibrillation Possible left anterior fascicular block Possible left ventricular hyper trophy Lateral T wave changes are probably due to ventricular hypertrophy Abnormal ECG PREVIOUS TRACING : 09/19/2015 13.48 Compared to prior tracing no significant change DOCTOR: Leonardo Herrera Interpretating Date/Time 07/10/2016 15:42:30
[2016-07-10] MEDS: traZODone HCL 50 MG TAB PO SCH (21:12)
[2016-07-11] VITALS (9 sets, daily range): BP systolic 123–154; BP diastolic 62–75; PULSE 58–80; RESP 16–20; TEMP 96.7–98; O2SAT 94–99
[2016-07-11 06:43] LABS: AUTOMATED NEUTROPHIL # 5.9 TH/MM3 (1.8-7.7); BASOPHIL % 0.2 % (0.0-2.0); EOSINOPHIL # 0.2 TH/MM3 (0-0.4); EOSINOPHIL % 2.5 % (0.0-4.0); HEMATOCRIT 29.4 % (39.0-51.0); HEMO FLAGS DIFF FINAL; LYMPH % 12.9 % (9.0-44.0); LYMPHOCYTE # 1.1 TH/MM3 (1.0-4.8); MEAN CELL VOLUME 82.9 FL (80.0-100.0); MEAN CORPUSCULAR HGB CONC 32.5 % (32.0-36.0); MONO % 13.1 % (0.0-8.0); NEUT % 71.3 % (16.0-70.0); PLATELET COUNT 301 TH/MM3 (150-450); RED BLOOD COUNT 3.54 MIL/MM3 (4.50-5.90); RED CELL DISTRIBUTION WIDTH 15.9 % (11.6-17.2); WHITE BLOOD COUNT 8.3 TH/MM3 (4.0-11.0)
[2016-07-11 06:48] LABS: POTASSIUM 3.3 MEQ/L (3.5-5.1)
[2016-07-11 06:53] LABS: BICARBONATE 30.8 MEQ/L (21.0-32.0)
[2016-07-11] MEDS: RESP: ALBUTEROL 2.5 MG/3 ML NEB (SCH) NEB ×4 (07:24→19:36)
[2016-07-11] MEDS: BUDESONIDE-FORMOTEROL 160/4.5 MCG INHALER INH SCH ×2 (08:56→20:57)
[2016-07-11] MEDS: SPIRONOLACTONE 25 MG TAB PO SCH (08:57)
[2016-07-11] MEDS: APIXABAN 2.5 MG TABLET PO SCH ×2 (08:58→20:57)
[2016-07-11] MEDS: SODIUM CHLORIDE 0.9% FLUSH 10 ML FLUSH IV FLUSH SCH ×2 (08:58→20:57)
[2016-07-11] MEDS: NEBIVOLOL 5 MG TAB PO SCH (08:58)
[2016-07-11] MEDS: FUROSEMIDE 40 MG/4 ML VIAL IV PUSH SCH (08:58)
[2016-07-11] MEDS: PANTOPRAZOLE SOD 40 MG DELAYED RELEASE TAB PO SCH (08:58)
[2016-07-11] MEDS: SERTRALINE HCL 50 MG TAB PO SCH (08:59)
[2016-07-11] MEDS: MEMANTINE HCL 5 MG TAB PO SCH ×2 (09:03→20:57)
[2016-07-11] MEDS ORDERED: SODIUM CHLOR 0.9% 1000 ML INJ 1,000 ML IV SCH (10:30)
[2016-07-11] MEDS ORDERED: SODIUM CHLOR 0.9% 250 ML INJ 250 ML IV ONE (10:30)
[2016-07-11] MEDS ORDERED: SYMB160A INH (11:07)
--- NOTE | 2016-07-11 11:08 | HHI.PR ---
Subjective Remarks Generally doing well stable on oxygen His creatinine increased to 2.1 mostly over diureses, will give a small bolus iv fluid and monitor his BMP will discharge him later this evening or tomorrow if creatinine started trending down Objective Vitals Vital Signs Date Time Temp Pulse Resp B/P Pulse Ox O2 Delivery O2 Flow Rate FiO2 07/11/16 08:00 58 07/11/16 08:00 96.7 80 20 135/68 98 07/11/16 07:25 99 Nasal Cannula 2.00 07/11/16 07:00 Nasal Cannula 2.00 07/11/16 04:00 97.6 78 18 130/64 96 07/11/16 00:02 96.7 79 18 123/62 97 07/10/16 20:00 95 Nasal Cannula 2.00 07/10/16 20:00 96 07/10/16 20:00 97.7 78 18 136/68 95 07/10/16 19:25 95 Nasal Cannula 2.00 07/10/16 15:28 97.6 81 16 133/66 94 07/10/16 11:55 96.5 74 16 137/73 97 I/O 07/10/16 07/10/16 07/10/16 07/11/16 07/11/16 07/11/16 07:00 15:00 23:00 07:00 15:00 23:00 Intake Total 200 ml 540 ml 750 ml 280 ml 200 ml Output Total 960 ml 400 ml 975 ml 250 ml Balance -760 ml 140 ml -225 ml 30 ml 200 ml Intake Oral 200 ml 540 ml 750 ml 280 ml 200 ml Output Urine Total 960 ml 400 ml 975 ml 250 ml # Voids 2 # Bowel Movements 0 0 0 Result Diagram: 07/11/16 0540 07/11/16 0540 Objective Remarks GENERAL: Well-developed, well-nourished, in no acute distress. alert and orientated HEENT: Head is normocephalic without any lesions or masses noted. Facial features are symmetric. Eyes: Pupils equal round reactive to light. Extraocular muscles are intact. Conjunctivae were clear. Oropharyngeal: Pharynx without any erythema edema. Tongue is midline without deviation. Buccal mucosa is moist without any masses or lesions NECK: Supple without any masses. Trachea midline no deviation. No JVD, no bruits are appreciated CARDIAC: Regular rhythm, regular rate. S1/S2 are heard. 2/6 ejection murmur noted in aortic region gallops or rubs. LUNGS: Mild wheeze noted in the right lower lung field, left lung field appreciated fine crackles, no rhonchi. No use of accessory muscles on inspiration or expiration. ABDOMEN: Soft, nontender. Nondistended. Bowel sounds heard in all 4 quadrants. No organomegaly or masses. Negative rebound, negative guarding EXTREMITIES: No edema, pulses are equal bilaterally. No cyanosis or clubbing NEUROLOGY: Mood and affect appear appropriate. Awake alert oriented moves all extremity A/P Problem List: (1) Acute on chronic systolic congestive heart failure ICD Code: I50.23 Status: Acute (2) Accelerated hypertension ICD Code: I10 Status: Acute (3) Hypoxia ICD Code: R09.02 Status: Acute (4) Chronic respiratory failure with hypoxia ICD Code: J96.11 Status: Acute (5) Chronic obstructive pulmonary disease ICD Code: J44.9 Status: Acute (6) Chronic atrial fibrillation ICD Code: I48.2 Status: Acute Assessment and Plan 07/11: His creatinine increased to 2.1 mostly over diureses, will give a small bolus iv fluid and monitor his BMP will discharge him later this evening or tomorrow if creatinine started trending down Hypokalemia mostly due to diuresis we'll replace by mouth A/P: Acute hypoxic on C. respiratory failure secondary to CHF / Flush pulmonary edema Acute on chronic systolic congestive heart failure, improved post diuresis Likely complicated by accelerated hypertension, increased fluid intake over the last month Chest x-ray does indicate significant pulmonary edema with mildly elevated BNP Status post Lasix 80 mg IV in emergency department with significant improvement Dr. Barajas is his primary radar scientist, they indicate that he is had a recent echocardiogram done approximately one month ago Continue diuresis with Lasix 40 mg IV twice daily Patient continued on beta belen, patient is allergic to Diovan, will avoid TRISHA inhibitor/ARB due to JOURDAN Strict input and output monitoring Accelerated hypertension, improved at this time after use of Lasix Continue home medications Monitor blood pressure closely COPD Continue O2 supplementation maintain O2 sats greater 92% Albuterol nebs QID and every 2 hours as needed for shortness of breath and dyspnea Symbicort inhaler Chronic atrial fibrillation Heart rate is controlled Continue beta belen Continue Eliquis for anticoagulation JOURDAN on Chronic kidney disease stage III Continue monitor renal function Avoid nephrotoxins Coronary artery disease, hyperlipidemia, Home medications have been continued DVT prevention Anticoagulated with Eliquis Problem Qualifiers (1) Chronic obstructive pulmonary disease: Qualified Code: J44.9 - Chronic obstructive pulmonary disease, unspecified COPD type Alonso Souza MD July 11, 2016 11:08
[2016-07-11] MEDS ORDERED: POTASSIUM CHLORIDE 20 MEQ CONTROLLED RELEASE TAB PO ONE (11:15)
[2016-07-11] MEDS: traZODone HCL 50 MG TAB PO SCH (20:57)
[2016-07-12 00:41] VITALS: BP 125/70; PULSE 68; RESP 18; TEMP 96.3; O2SAT 98
[2016-07-12 04:00] VITALS: BP 113/68; PULSE 79; RESP 22; TEMP 97.3; O2SAT 97
[2016-07-12 07:26] LABS: POTASSIUM 3.6 MEQ/L (3.5-5.1)
[2016-07-12 07:30] LABS: BICARBONATE 31.4 MEQ/L (21.0-32.0)
[2016-07-12] MEDS: RESP: ALBUTEROL 2.5 MG/3 ML NEB (SCH) NEB (07:58)
[2016-07-12 08:00] VITALS: BP 141/70; PULSE 58; PULSE 70; RESP 17; TEMP 97.6; O2SAT 94
[2016-07-12 08:01] VITALS: O2SAT 95
[2016-07-12] MEDS: BUDESONIDE-FORMOTEROL 160/4.5 MCG INHALER INH SCH (09:05)
[2016-07-12] MEDS: NEBIVOLOL 5 MG TAB PO SCH (09:06)
[2016-07-12] MEDS: SERTRALINE HCL 50 MG TAB PO SCH (09:06)
[2016-07-12] MEDS: PANTOPRAZOLE SOD 40 MG DELAYED RELEASE TAB PO SCH (09:06)
[2016-07-12] MEDS: MEMANTINE HCL 5 MG TAB PO SCH (09:06)
[2016-07-12] MEDS: APIXABAN 2.5 MG TABLET PO SCH (09:07)
[2016-07-12] MEDS: SODIUM CHLORIDE 0.9% FLUSH 10 ML FLUSH IV FLUSH SCH (09:07)
--- NOTE | 2016-07-12 10:28 | HHI.PR ---
Subjective Remarks Patient doing well, creatinine dropped to 1.6, I discussed with him and advised him to hold on diuretic for today and resume in the morning Objective Vitals Vital Signs Date Time Temp Pulse Resp B/P Pulse Ox O2 Delivery O2 Flow Rate FiO2 07/12/16 08:01 95 Nasal Cannula 2.00 07/12/16 08:00 70 07/12/16 08:00 Nasal Cannula 2.00 07/12/16 08:00 97.6 58 17 141/70 94 07/12/16 04:00 97.3 79 22 113/68 97 07/12/16 00:41 96.3 68 18 125/70 98 07/11/16 21:20 98.0 79 16 154/75 98 07/11/16 20:00 75 07/11/16 19:35 94 Nasal Cannula 2.00 07/11/16 19:00 94 Nasal Cannula 2.00 07/11/16 16:00 98.0 67 20 130/65 97 07/11/16 12:00 97.8 76 20 142/75 97 I/O 07/11/16 07/11/16 07/11/16 07/12/16 07/12/16 07/12/16 07:00 15:00 23:00 07:00 15:00 23:00 Intake Total 280 ml 830 ml 475 ml Output Total 250 ml 1750 ml 300 ml 800 ml Balance 30 ml -920 ml -300 ml -325 ml Intake Oral 280 ml 830 ml 475 ml Output Urine Total 250 ml 1750 ml 300 ml 800 ml # Voids 2 # Bowel Movements 0 2 Result Diagram: 07/11/16 0540 07/12/16 0620 Objective Remarks GENERAL: Well-developed, well-nourished, in no acute distress. alert and orientated HEENT: Head is normocephalic without any lesions or masses noted. Facial features are symmetric. Eyes: Pupils equal round reactive to light. Extraocular muscles are intact. Conjunctivae were clear. Oropharyngeal: Pharynx without any erythema edema. Tongue is midline without deviation. Buccal mucosa is moist without any masses or lesions NECK: Supple without any masses. Trachea midline no deviation. No JVD, no bruits are appreciated CARDIAC: Regular rhythm, regular rate. S1/S2 are heard. 2/6 ejection murmur noted in aortic region gallops or rubs. LUNGS: Mild wheeze noted in the right lower lung field, left lung field appreciated fine crackles, no rhonchi. No use of accessory muscles on inspiration or expiration. ABDOMEN: Soft, nontender. Nondistended. Bowel sounds heard in all 4 quadrants. No organomegaly or masses. Negative rebound, negative guarding EXTREMITIES: No edema, pulses are equal bilaterally. No cyanosis or clubbing NEUROLOGY: Mood and affect appear appropriate. Awake alert oriented moves all extremity A/P Problem List: (1) Acute on chronic systolic congestive heart failure ICD Code: I50.23 Status: Acute (2) Accelerated hypertension ICD Code: I10 Status: Acute (3) Hypoxia ICD Code: R09.02 Status: Acute (4) Chronic respiratory failure with hypoxia ICD Code: J96.11 Status: Acute (5) Chronic obstructive pulmonary disease ICD Code: J44.9 Status: Acute (6) Chronic atrial fibrillation ICD Code: I48.2 Status: Acute Assessment and Plan 07/11: His creatinine increased to 2.1 mostly over diureses, will give a small bolus iv fluid and monitor his BMP will discharge him later this evening or tomorrow if creatinine started trending down Hypokalemia mostly due to diuresis we'll replace by mouth 07/12: Creatinine dropped to 1.6, almost a baseline advice patient to resume diuretic tomorrow, follow up with his PCP and brand protection manager A/P: Acute hypoxic on C. respiratory failure secondary to CHF / Flush pulmonary edema Acute on chronic systolic congestive heart failure, improved post diuresis Likely complicated by accelerated hypertension, increased fluid intake over the last month Chest x-ray does indicate significant pulmonary edema with mildly elevated BNP Status post Lasix 80 mg IV in emergency department with significant improvement Dr. Barajas is his primary spray technician, they indicate that he is had a recent echocardiogram done approximately one month ago Continue diuresis with Lasix 40 mg IV twice daily Patient continued on beta belen, patient is allergic to Diovan, will avoid TRISHA inhibitor/ARB due to JOURDAN Strict input and output monitoring Accelerated hypertension, improved at this time after use of Lasix Continue home medications Monitor blood pressure closely COPD Continue O2 supplementation maintain O2 sats greater 92% Albuterol nebs QID and every 2 hours as needed for shortness of breath and dyspnea Symbicort inhaler Chronic atrial fibrillation Heart rate is controlled Continue beta belen Continue Eliquis for anticoagulation JOURDAN on Chronic kidney disease stage III Continue monitor renal function Avoid nephrotoxins Coronary artery disease, hyperlipidemia, Home medications have been continued DVT prevention Anticoagulated with Eliquis Problem Qualifiers (1) Chronic obstructive pulmonary disease: Qualified Code: J44.9 - Chronic obstructive pulmonary disease, unspecified COPD type Alonso Souza MD July 12, 2016 10:28
== END 2016-07-12 11:08 | disposition home or self-care (01) | DRG 291 ==
LOC: PHED 12:52 → PHEDA 14:25 → PH3A 15:04 → OBSVTOIN 07-10 09:13
PROVIDERS: ADMIT Hospitalist; ATTEND Hospitalist
PROC: 3E0F7GC Introduction of Other Therapeutic Substance into Respiratory Tract, Via Natural or Artificial Opening (ICD-10-PCS; principal; 2016-07-10)
DX: I50.23 Acute on chronic systolic (congestive) heart failure (principal); J96.21 Acute and chronic respiratory failure with hypoxia; N17.9 Acute kidney failure, unspecified; J44.1 Chronic obstructive pulmonary disease with (acute) exacerbation; K22.70 Barrett's esophagus without dysplasia; Z99.81 Dependence on supplemental oxygen; I48.2 Chronic atrial fibrillation; N18.3 Chronic kidney disease, stage 3 (moderate); I12.9 Hypertensive chronic kidney disease with stage 1 through stage 4 chronic kidney disease, or unspecified chronic kidney disease; E78.5 Hyperlipidemia, unspecified; I25.10 Atherosclerotic heart disease of native coronary artery without angina pectoris; K21.9 Gastro-esophageal reflux disease without esophagitis; F41.9 Anxiety disorder, unspecified; F32.9 Major depressive disorder, single episode, unspecified; E78.00 Pure hypercholesterolemia, unspecified; H91.93 Unspecified hearing loss, bilateral; Z85.46 Personal history of malignant neoplasm of prostate; K44.9 Diaphragmatic hernia without obstruction or gangrene; Z95.1 Presence of aortocoronary bypass graft; Z95.5 Presence of coronary angioplasty implant and graft; Z85.820 Personal history of malignant melanoma of skin; Z88.8 Allergy status to other drugs, medicaments and biological substances; Z91.038 Other insect allergy status; Z91.013 Allergy to seafood; I25.2 Old myocardial infarction; Z87.891 Personal history of nicotine dependence
CPT/HCPCS: 36600; 71010; 80048; 80053; 81001; 82550; 82552; 82805; 82948; 83735; 83880; 84132; 84484; 85025; 85610; 85730; 87804; 93005; 94640; 94664; 96374; 96375; G0378; G8987-GP; G8988-GP; J1940; J1956; J2930; J7030; J7050; J7613

== ENCOUNTER 2016-10-20 14:19 | Observation (INO) | payer MEDICARE ==
[~2016-10-20] VITALS: Ht 175.3 cm; Wt 64.4 kg
[2016-10-20] VITALS (9 sets, daily range): BP systolic 121–188; BP diastolic 59–102; PULSE 64–91; RESP 18–36; TEMP 97.4–97.5; O2SAT 90–100
[~2016-10-20 14:19] MED LIST changes: +ALBU.5I NEB; -ALBU0.086 NEB; -ALBU6.7H INH; -ALPR.25 PO; +BYST5TAB2 PO; -FURO20 PO; +FURO20TA PO; -IRON27TA PO; +MEMA1TAB PO; +MULTTAB22 PO; -NAME5TAB2 PO; -NEBI5 PO; -NITR.4 SL; +NITR0.4S SL; +PANT40TA3 PO; +POTA-163 PO; -POTA20IN3 PO; -PRESCAP5 PO; -PROB1TAB PO; +PROBCAP PO; -PROT40TA PO; -ROSU1TAB8 PO; +ROSU20 PO; +SERT25TA83 PO; +SYMB160A INH; -TAB-TAB PO; +TEST200I12 IM; -TEST200I13 IM; +TRAZ50TA12 PO; -TRAZ50TA4 PO; +VENTAER INH; -VITA200017 PO; +VITRTAB3 PO; -Z.0.OXYGEN INH
--- NOTE | 2016-10-20 14:31 | PD ---
Physical Exam Date Seen by Provider: Oct 20, 2016 Time Seen by Provider: 14:27 Narrative 86 y/o Male with Hx COPD and CABG and CHF requiring suspect artist O2 at home here with Worsening SOB for the past few days with associated with chest pain/ pressure of 9/10. No fever or chills. Some increased Phlegm. Also complaining of generalized Abd Discomfort. On Elequist. Protocol labs ordered. Vital Signs reviewed. Patient is Stable and awaiting Bed Placement. Data Data Last Documented VS Vital Signs Date Time Temp Pulse Resp B/P (MAP) Pulse Ox O2 Delivery O2 Flow Rate FiO2 10/20/16 14:22 97.4 76 36 121/59 (79) 90 Nasal Cannula MDM Medical Record Reviewed: Yes Supervised Visit with DES: Yes Condition: Stable Leif Pace Oct 20, 2016 14:31
--- NOTE | 2016-10-20 15:00 | RADRPT ---
EXAM DATE/TIME: 10/20/2016 14:51 [facility] COMPARISON: CHEST PA & LAT, March 23, 2015, 16:24. INDICATIONS : Chest pain and short of breath. MEDICAL HISTORY : Left spontaneous pneumothorax. SURGICAL HISTORY : CABG. ENCOUNTER: Initial ACUITY: 2 days PAIN SCORE: 9/10 LOCATION: Bilateral chest FINDINGS: PA and lateral views of the chest demonstrate cardiomegaly with bilateral patchy airspace disease. Hy perinflation noted. Minimal right pleural effusion. Osseous structures are intact. There are some ol d right-sided rib fractures. CONCLUSION: 1. COPD. 2. Cardiomegaly with bilateral patchy airspace disease and minimal right pleural effusion. Franklin Jovel MD on October 20, 2016 at 14:57 Board Certified Radiologist. This report was verified electronically.
[2016-10-20 16:05] LABS: AUTOMATED NEUTROPHIL # 4.7 TH/MM3 (1.8-7.7); BASOPHIL % 0.5 % (0.0-2.0); EOSINOPHIL # 0.1 TH/MM3 (0-0.4); HEMATOCRIT 31.8 % (39.0-51.0); HEMO FLAGS DIFF FINAL; LYMPH % 9.6 % (9.0-44.0); LYMPHOCYTE # 0.6 TH/MM3 (1.0-4.8); MEAN CELL VOLUME 83.4 FL (80.0-100.0); MEAN CORPUSCULAR HEMOGLOBIN 25.5 PG (27.0-34.0); MEAN CORPUSCULAR HGB CONC 30.6 % (32.0-36.0); NEUT % 72.9 % (16.0-70.0); PLATELET COUNT 229 TH/MM3 (150-450); RED BLOOD COUNT 3.81 MIL/MM3 (4.50-5.90); RED CELL DISTRIBUTION WIDTH 17.3 % (11.6-17.2); WHITE BLOOD COUNT 6.4 TH/MM3 (4.0-11.0)
[2016-10-20 16:09] LABS: APTT (PATIENT) 30.3 SEC (24.3-30.1); INTERNATIONAL NORMALIZED RATIO 1.1 RATIO; PROTHROMBIN TIME - PATIENT 12.7 SEC (9.8-11.6)
[2016-10-20 16:16] LABS: ANION GAP 10 MEQ/L (5-15); AST (GOT) 18 U/L (15-37); BLOOD UREA NITROGEN 27 MG/DL (7-18); CHLORIDE 105 MEQ/L (98-107); GLOMERULAR FILTRATION RATE 44 ML/MIN (>89); MAGNESIUM 2.3 MG/DL (1.5-2.5); POTASSIUM 4.1 MEQ/L (3.5-5.1); SODIUM (NA) 139 MEQ/L (136-145)
[2016-10-20 16:17] LABS: ALT (GPT) 22 U/L (12-78)
[2016-10-20 16:21] LABS: ALKALINE PHOSPHATASE 72 U/L (45-117); CREATINE KINASE 125 U/L (39-308); TOTAL BILIRUBIN ADULT 0.6 MG/DL (0.2-1.0)
[2016-10-20 16:33] LABS: CKMB 3.4 NG/ML (0.5-3.6)
[2016-10-20] MEDS ORDERED: methylPREDNISolone SOD SUCC 125 MG/2 ML VIAL IVP ONE (17:15)
[2016-10-20] MEDS: RESP: ALBUTEROL 2.5 MG/3 ML NEB (SCH) INH (17:31)
[2016-10-20] MEDS ORDERED: PROT40TA PO (17:39)
[2016-10-20 17:44] LABS: BLOOD GAS BASE EXCESS -0.7 mmol/L (-2-2); BLOOD GAS CARBOXYHEMOGLOBIN 1.8 % (0-4); BLOOD GAS HCO3 23 mmol/L (22-26); BLOOD GAS METHEMOGLOBIN 0.3 % (0-2); BLOOD GAS O2 HGB SATURATION 92 % (90-100); BLOOD GAS PCO2 35 mmHg (38-42); BLOOD GAS PO2 71 mmHG (61-120); BLOOD GAS TOTAL HGB 9.2 G/DL (12.0-16.0); CRITICAL VALUE NO; DRAW SITE LT BRACHIAL; LITER FLOW 2 L/M; NUMBER OF ARTERIAL PUNCTURES 1; OXYGEN DEVICE NASAL CANNULA; TEMP CORR TO 98.6
[2016-10-20 17:45] LABS: STAT YES; ULNAR PULSE Y
--- NOTE | 2016-10-20 18:41 | PD ---
HPI Chief Complaint: Respiratory Symptoms Time Seen by Provider: 16:50 Travel History International Travel<30 days: No Contact w/Intl Traveler<30days: No Traveled to known affect area: No History of Present Illness HPI This is a 86-year-old gentleman with history of CHF, COPD, who presents today with complaints of progressive shortness of breath over the last week. The patient reports taking all of his medications as prescribed. He reports productive cough with white-yellow phlegm. There is no reported fevers, chills. He normally is on 2 L of oxygen at home. Today he increased his O2 to 3 L and feels a little better. The patient denies any increased swelling. He reports decreased appetite secondary to the shortness of breath. PFSH Past Medical History Hx Anticoagulant Therapy: Yes (ELOQUIS) Arthritis: Yes Asthma: No Blood Disorders: No Anxiety: Yes Depression: Yes (currently on antidepressant) Heart Rhythm Problems: Yes (afib) Cancer: Yes (PROSTATE) Cardiac Catheterization: Yes Cardiovascular Problems: Yes (OR/ TRIPLE BYPASS) High Cholesterol: Yes Chemotherapy: No Chest Pain: No Congestive Heart Failure: Yes COPD: Yes Cerebrovascular Accident: No Coronary Artery Disease: Yes Diabetes: No Diminished Hearing: Yes (BILAT HEARING AIDS) Endocrine: No Gastrointestinal Disorders: Yes (GERD, GI BLEED) GERD: Yes Genitourinary: No Hepatitis: No Hiatal Hernia: Yes Hypertension: Yes Immune Disorder: No Musculoskeletal: No 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) Psychiatric: No Reproductive: No Respiratory: Yes (COPD ON O2 AT ALL TIMES 2L NC) Myocardial Infarction: Yes Radiation Therapy: No Sickle Cell Disease: No Sleep Apnea: No Thyroid Disease: No Ulcer: No Past Surgical History Abdominal Surgery: No AICD: No Arteriovenous Shunt: No Body Medical Devices: CARDIAC STENTS Cardiac Surgery: Yes (CABG X2, CABGX3) Coronary Artery Bypass Graft: Yes Ear Surgery: No Endocrine Surgery: No Eye Surgery: Yes (BILATERAL CATARACT) Genitourinary Surgery: Yes (PROSTATE REMOVED) Insulin Pump: No Joint Replacement: No Oral Surgery: Yes (TONSILLECTOMY) Pacemaker: No Thoracic Surgery: Yes (LEFT THORACOTOMY--LOWER LOBE REMOVED) Other Surgery: Yes (MELANOMA) Social History Alcohol Use: No Tobacco Use: No Substance Use: No Allergies-Medications (Allergen,Severity, Reaction): Coded Allergies: atorvastatin (Unverified Allergy, Severe, SOB, JOINT PAIN, 8/21/17) hornet venom (Unverified Allergy, Severe, Anaphylaxis, 10/20/16) iodine (Unverified Allergy, Severe, Anaphylaxis, 10/20/16) ONLY IN SHRIMP, IS NOT ALLERGIC TO IODINATED CONTRAST PER PATIENT, IS NOT ALLERGIC TO TOPICAL BETADINE PER PATIENT. ipratropium (Unverified Allergy, Severe, SHAKY, 10/20/16) potassium iodide (Unverified Allergy, Severe, Anaphylaxis, 10/20/16) ONLY IN SHRIMP, IS NOT ALLERGIC TO IODINATED CONTRAST PER PATIENT, IS NOT ALLERGIC TO TOPICAL BETADINE PER PATIENT. povidone-iodine (Unverified Allergy, Severe, Anaphylaxis, 10/20/16) ONLY IN SHRIMP, IS NOT ALLERGIC TO IODINATED CONTRAST PER PATIENT, IS NOT ALLERGIC TO TOPICAL BETADINE PER PATIENT. shrimp (Unverified Allergy, Severe, SOB, VOMITING, 10/20/16) sodium iodide (Unverified Allergy, Severe, Anaphylaxis, 10/20/16) ONLY IN SHRIMP, IS NOT ALLERGIC TO IODINATED CONTRAST PER PATIENT, IS NOT ALLERGIC TO TOPICAL BETADINE PER PATIENT. sodium iodide (Unverified Allergy, Severe, Anaphylaxis, 10/20/16) ONLY IN SHRIMP, IS NOT ALLERGIC TO IODINATED CONTRAST PER PATIENT, IS NOT ALLERGIC TO TOPICAL BETADINE PER PATIENT. valsartan (Unverified Allergy, Intermediate, PT DOESNT REMEMBER REACTION, 10/20/16) Reported Meds & Prescriptions Reported Meds & Active Scripts Active Reported Protonix (Pantoprazole Sodium) 40 Mg Tab 40 Mg PO BID Testosterone Cypionate Inj (Testosterone Cypionate) 200 Mg/Ml Inj 200 Mg IM Q28D Multi For Him (Multiple Vitamins W/ Minerals) 1 Tab Tab 1 Tab PO DAILY Probiotic Mature Adult (Probiotic Product) 1 Cap Cap 1 Cap PO DAILY Albuterol Neb (Albuterol Sulfate) 2.5 Mg/0.5 Ml Neb 2.5 Mg NEB Q6HR NEB Note: The Albuterol Sulfate Inhalation Solution is concentrated and must be diluted. Read complete instructions carefully before using. Ventolin Hfa 18 GM Inh (Albuterol Sulfate) 90 Mcg/Act Aer 1 Puff INH Q4H PRN Anoro Ellipta Inh (Umeclidinium/Vilanterol) 62.5-25 Mcg/Act Aero 1 Puff INH DAILY Trazodone (Trazodone HCl) 50 Mg Tab 50 Mg PO HS Memantine 5 Mg Tab 5 Mg PO BID Sertraline (Sertraline HCl) 25 Mg Tab 25 Mg PO DAILY Vitron-C (Iron-Vitamin C) 65-125 Mg Tab 1 Tab PO DAILY Nitrostat SL (Nitroglycerin) 0.4 Mg Subl 0.4 Mg SL DIRECTED PRN 1 tablet under the tongue as needed for chest pain. Repeat every 5 minutes for a total of 3 DOSES or call 911 if NO relief. Potassium Chloride ER (Potassium Chloride) 20 Meq Tab 20 Meq PO DAILY Bystolic (Nebivolol) 5 Mg Tab 5 Mg PO DAILY Crestor (Rosuvastatin Calcium) 20 Mg Tab 20 Mg PO DAILY Eliquis (Apixaban) 2.5 Mg Tab 2.5 Mg PO BID Furosemide 20 Mg Tab 20 Mg PO [id number] Spironolactone 25 Mg Tab 25 Mg PO M/W/F Review of Systems Except as stated in HPI: all other systems reviewed are Neg General / Constitutional: No: Fever, Chills HENT: No: Headaches, Neck Stiffness Cardiovascular: No: Chest Pain or Discomfort, Palpitations Respiratory: Positive: Cough (white yellow phlegm), Shortness of Breath, Wheezing, Other (patient can only walk a few feet before getting winded.) Gastrointestinal: No: Nausea, Vomiting, Abdominal Pain Genitourinary: No: Dysuria, Decreased Urinary Output Musculoskeletal: No: Weakness, Pain Neurologic: No: Weakness, Headache Physical Exam Narrative GENERAL: Well-developed well-nourished man in moderate respiratory discomfort. SKIN: Focused skin assessment warm/dry. HEAD: Atraumatic. Normocephalic. EYES: No scleral icterus. No injection or drainage. ENT: No nasal bleeding or discharge. Mucous membranes pink and moist. NECK: Trachea midline. No JVD. CARDIOVASCULAR: Tachycardic with no murmur. RESPIRATORY: Breath sounds equal bilaterally. Diffuse expiratory wheezes heard in all 4 lung roa. GASTROINTESTINAL: Abdomen soft, non-tender, nondistended. MUSCULOSKELETAL: No obvious deformities. No clubbing. No cyanosis. No edema. NEUROLOGICAL: Awake and alert. No obvious cranial nerve deficits. Motor grossly within normal limits. Normal speech. PSYCHIATRIC: Appropriate mood and affect; insight and judgment normal. Data Data Last Documented VS Vital Signs Date Time Temp Pulse Resp B/P (MAP) Pulse Ox O2 Delivery O2 Flow Rate FiO2 10/20/16 17:35 95 Nasal Cannula 2.00 10/20/16 14:59 64 22 188/88 (121) 10/20/16 14:22 97.4 Orders Orders Electrocardiogram (10/20/16 14:31) B-Type Natriuretic Peptide (10/20/16 14:31) Ckmb (Isoenzyme) Profile (10/20/16 14:31) Complete Blood Count With Diff (10/20/16 14:31) Comprehensive Metabolic Panel (10/20/16 14:31) Magnesium (Mg) (10/20/16 14:31) Prothrombin Time / Inr (Pt) (10/20/16 14:31) Act Partial Throm Time (Ptt) (10/20/16 14:31) Troponin I (10/20/16 14:31) Chest, Pa & Lat (10/20/16 14:31) CKMB (10/20/16 15:01) CKMB% (10/20/16 15:01) Arterial Blood Gas (Abg) (10/20/16 17:15) Methylprednisolone So Succ Inj (Solumedr (10/20/16 17:15) Albuterol Neb (Albuterol Neb) (10/20/16 17:30) Labs Laboratory Tests Test 10/20/16 15:01 10/20/16 17:34 White Blood Count 6.4 TH/MM3 Red Blood Count 3.81 MIL/MM3 Hemoglobin 9.7 GM/DL Hematocrit 31.8 % Mean Corpuscular Volume 83.4 FL Mean Corpuscular Hemoglobin 25.5 PG Mean Corpuscular Hemoglobin Concent 30.6 % Red Cell Distribution Width 17.3 % Platelet Count 229 TH/MM3 Mean Platelet Volume 8.8 FL Neutrophils (%) (Auto) 72.9 % Lymphocytes (%) (Auto) 9.6 % Monocytes (%) (Auto) 15.0 % Eosinophils (%) (Auto) 2.0 % Basophils (%) (Auto) 0.5 % Neutrophils # (Auto) 4.7 TH/MM3 Lymphocytes # (Auto) 0.6 TH/MM3 Monocytes # (Auto) 1.0 TH/MM3 Eosinophils # (Auto) 0.1 TH/MM3 Basophils # (Auto) 0.0 TH/MM3 CBC Comment DIFF FINAL Differential Comment Prothrombin Time 12.7 SEC Prothromb Time International Ratio 1.1 RATIO Activated Partial Thromboplast Time 30.3 SEC Blood Urea Nitrogen 27 MG/DL Creatinine 1.50 MG/DL Random Glucose 83 MG/DL Total Protein 7.1 GM/DL Albumin 4.0 GM/DL Calcium Level 8.9 MG/DL Magnesium Level 2.3 MG/DL Alkaline Phosphatase 72 U/L Aspartate Amino Transf (AST/SGOT) 18 U/L Alanine Aminotransferase (ALT/SGPT) 22 U/L Total Bilirubin 0.6 MG/DL Sodium Level 139 MEQ/L Potassium Level 4.1 MEQ/L Chloride Level 105 MEQ/L Carbon Dioxide Level 24.0 MEQ/L Anion Gap 10 MEQ/L Estimat Glomerular Filtration Rate 44 ML/MIN Total Creatine Kinase 125 U/L Creatine Kinase MB 3.4 NG/ML Troponin I 0.05 NG/ML Blood Gas Puncture Site LT BRACHIAL Blood Gas Patient Temperature 98.6 Blood Gas HCO3 23 mmol/L Blood Gas Base Excess -0.7 mmol/L Blood Gas Oxygen Saturation 92 % Arterial Blood pH 7.43 Arterial Blood Partial Pressure CO2 35 mmHg Arterial Blood Partial Pressure O2 71 mmHG Arterial Blood Oxygen Content 12.0 Vol % Arterial Blood Carboxyhemoglobin 1.8 % Arterial Blood Methemoglobin 0.3 % Blood Gas Hemoglobin 9.2 G/DL Oxygen Delivery Device NASAL CANNULA Blood Gas Liter Flow 2 L/M [facility] Medical Decision Making Medical Screen Exam Complete: Yes Emergency Medical Condition: Yes Differential Diagnosis CHF versus asthma exacerbation versus ACS Narrative Course This is an 86-year-old male with a history of CHF, COPD, presents here with respiratory discomfort. The patient has expiratory wheezes heard in all 4 lung roa. He's been given 125 mg of Solu-Medrol. He's also been given 3 nebulizer albuterol treatments. He has improved however he does desat and get winded on ambulation. With this, we will admit him under observation for COPD exacerbation. He does have a small right pleural effusion. At this time I will cover him with Levaquin, 500 mg I V times one dose. [facility] Diagnosis Primary Impression: COPD exacerbation Additional Impressions: Chronic kidney disease small right pleural effusion History of CHF (congestive heart failure) Condition: Stable William Alicea MD Oct 20, 2016 18:41
[2016-10-20] MEDS ORDERED: LEVOFLOXACIN 500 MG PREMIX INJ 100 ML IV ONE (18:45)
[2016-10-20] MEDS ORDERED: SODIUM CHLORIDE 0.9% FLUSH 10 ML FLUSH IV FLUSH PRN (19:30)
[2016-10-20] MEDS ORDERED: RESP: ALBUTEROL 2.5 MG/3 ML NEB (PRN) INH (20:00)
[2016-10-20] MEDS ORDERED: hydrALAZINE HCL 20 MG/ML VIAL IV PRN (20:00)
[2016-10-20] MEDS ORDERED: SENNOSIDES 8.6 MG TAB PO PRN (20:15)
[2016-10-20] MEDS ORDERED: ONDANSETRON HCL 4 MG/2 ML VIAL IVP PRN (20:15)
[2016-10-20] MEDS ORDERED: ACETAMINOPHEN 325 MG TAB PO PRN ×2 (20:15)
[2016-10-20] MEDS ORDERED: LACTULOSE SYRUP 20 GM/30 ML CUP PO PRN (20:15)
[2016-10-20] MEDS ORDERED: NALOXONE HCL 0.4 MG/ML AMP IV PRN (20:15)
--- NOTE | 2016-10-20 20:20 | HHI.HP ---
[facility] Mandi Calvert MD Admission Diagnosis COPD exacerbation, chronic kidney disease, hx of chf. Diagnoses: Chief Complaint: Shortness of breath Travel History International Travel<30 Days: No Contact w/Intl Traveler <30 Da: No Traveled to Known Affected Are: No History of Present Illness This is a 86-year-old male with a history of systolic heart failure, COPD, chronic respiratory failure on 2 L nasal cannula, coronary artery disease status post stents /CABG, chronic kidney disease stage III, prostate cancer status post surgery, hyperlipidemia, GERD and hypertension. He presented to the emergency department complaining of progressive shortness of breath for the past week. He reports of dyspnea on exertion associated with wheezing, productive cough of clear phlegm. No fever or chills. He also reports of orthopnea and bilateral lower extremity swelling. He reports compliance with medical therapy. In the emergency department, he received 2 doses of nebulizations and IV Solu-Medrol. He feels better but still has significant dyspnea on exertion and recommended hospitalization for further evaluation and treatment. Chest x-ray image interpreted by me with cardiomegaly, bilateral ear pressure disease and right pleural effusion and patient was given IV Levaquin 1. Patient was seen with daughter who reports patient had a unremarkable echo card to come 3 weeks ago. All other systems reviewed negative Review of Systems Except as stated in HPI: all other systems reviewed are Neg Past Family Social History Past Medical History As previously mentioned Past Surgical History As previously mentioned, cataract surgery, tonsillectomy, left thoracotomy Reported Medications Protonix (Pantoprazole Sodium) 40 Mg Tab 40 Mg PO BID Testosterone Cypionate Inj (Testosterone Cypionate) 200 Mg/Ml Inj 200 Mg IM Q28D Multi For Him (Multiple Vitamins W/ Minerals) 1 Tab Tab 1 Tab PO DAILY Probiotic Mature Adult (Probiotic Product) 1 Cap Cap 1 Cap PO DAILY Albuterol Neb (Albuterol Sulfate) 2.5 Mg/0.5 Ml Neb 2.5 Mg NEB Q6HR NEB Note: The Albuterol Sulfate Inhalation Solution is concentrated and must be diluted. Read complete instructions carefully before using. Ventolin Hfa 18 GM Inh (Albuterol Sulfate) 90 Mcg/Act Aer 1 Puff INH Q4H PRN Anoro Ellipta Inh (Umeclidinium/Vilanterol) 62.5-25 Mcg/Act Aero 1 Puff INH DAILY Trazodone (Trazodone HCl) 50 Mg Tab 50 Mg PO HS Memantine 5 Mg Tab 5 Mg PO BID Sertraline (Sertraline HCl) 25 Mg Tab 25 Mg PO DAILY Vitron-C (Iron-Vitamin C) 65-125 Mg Tab 1 Tab PO DAILY Nitrostat SL (Nitroglycerin) 0.4 Mg Subl 0.4 Mg SL DIRECTED PRN 1 tablet under the tongue as needed for chest pain. Repeat every 5 minutes for a total of 3 DOSES or call 911 if NO relief. Potassium Chloride ER (Potassium Chloride) 20 Meq Tab 20 Meq PO DAILY Bystolic (Nebivolol) 5 Mg Tab 5 Mg PO DAILY Crestor (Rosuvastatin Calcium) 20 Mg Tab 20 Mg PO DAILY Eliquis (Apixaban) 2.5 Mg Tab 2.5 Mg PO BID Furosemide 20 Mg Tab 20 Mg PO [id number] Spironolactone 25 Mg Tab 25 Mg PO // Allergies: Coded Allergies: atorvastatin (Unverified Allergy, Severe, SOB, JOINT PAIN, 10/20/16) hornet venom (Unverified Allergy, Severe, Anaphylaxis, 10/20/16) iodine (Unverified Allergy, Severe, Anaphylaxis, 10/20/16) ONLY IN SHRIMP, IS NOT ALLERGIC TO IODINATED CONTRAST PER PATIENT, IS NOT ALLERGIC TO TOPICAL BETADINE PER PATIENT. ipratropium (Unverified Allergy, Severe, SHAKY, 10/20/16) potassium iodide (Unverified Allergy, Severe, Anaphylaxis, 10/20/16) ONLY IN SHRIMP, IS NOT ALLERGIC TO IODINATED CONTRAST PER PATIENT, IS NOT ALLERGIC TO TOPICAL BETADINE PER PATIENT. povidone-iodine (Unverified Allergy, Severe, Anaphylaxis, 10/20/16) ONLY IN SHRIMP, IS NOT ALLERGIC TO IODINATED CONTRAST PER PATIENT, IS NOT ALLERGIC TO TOPICAL BETADINE PER PATIENT. shrimp (Unverified Allergy, Severe, SOB, VOMITING, 10/20/16) sodium iodide (Unverified Allergy, Severe, Anaphylaxis, 10/20/16) ONLY IN SHRIMP, IS NOT ALLERGIC TO IODINATED CONTRAST PER PATIENT, IS NOT ALLERGIC TO TOPICAL BETADINE PER PATIENT. sodium iodide (Unverified Allergy, Severe, Anaphylaxis, 10/20/16) ONLY IN SHRIMP, IS NOT ALLERGIC TO IODINATED CONTRAST PER PATIENT, IS NOT ALLERGIC TO TOPICAL BETADINE PER PATIENT. valsartan (Unverified Allergy, Intermediate, PT DOESNT REMEMBER REACTION, 10/20/16) Family History No CAD Social History Ex-smoker and alcoholic drinker Physical Exam Vital Signs Vital Signs Date Time Temp Pulse Resp B/P (MAP) Pulse Ox O2 Delivery O2 Flow Rate FiO2 10/20/16 19:24 88 22 186/86 (119) 97 Nasal Cannula 3.00 10/20/16 18:29 78 20 172/83 (112) 98 Nasal Cannula 3.00 10/20/16 17:35 95 Nasal Cannula 2.00 10/20/16 14:59 64 22 188/88 (121) 100 Nasal Cannula 3.00 10/20/16 14:22 97.4 76 36 121/59 (79) 90 Nasal Cannula Physical Exam GENERAL: This is a well-nourished, well-developed patient, in no apparent distress on 3 L nasal cannula. SKIN: No rashes, ecchymoses or lesions. Cool and dry. HEAD: Atraumatic. Normocephalic. No temporal or scalp tenderness. EYES: Pupils equal round and reactive. Extraocular motions intact. No scleral icterus. No injection or drainage. ENT: Nose without bleeding, purulent drainage or septal hematoma. Throat without erythema, tonsillar hypertrophy or exudate. Uvula midline. Airway patent. NECK: Trachea midline. No JVD or lymphadenopathy. Supple, nontender, no meningeal signs. CARDIOVASCULAR: Irregularly irregular without murmurs, gallops, or rubs. RESPIRATORY: Clear to auscultation. Decreased Breath sounds equal bilaterally. No wheezes, rales, or rhonchi. GASTROINTESTINAL: Abdomen soft, non-tender, nondistended. No guarding. MUSCULOSKELETAL: Extremities without clubbing, cyanosis but with bilateral lower extremity trace edema. No joint tenderness, effusion, or edema noted. No calf tenderness. Negative Homans sign bilaterally. NEUROLOGICAL: Awake and alert. Cranial nerves II through XII intact. Motor and sensory grossly within normal limits. Five out of 5 muscle strength in all muscle groups. Normal speech. Laboratory Laboratory Tests Test 10/20/16 15:01 10/20/16 17:34 White Blood Count 6.4 Red Blood Count 3.81 Hemoglobin 9.7 Hematocrit 31.8 Mean Corpuscular Volume 83.4 Mean Corpuscular Hemoglobin 25.5 Mean Corpuscular Hemoglobin Concent 30.6 Red Cell Distribution Width 17.3 Platelet Count 229 Mean Platelet Volume 8.8 Neutrophils (%) (Auto) 72.9 Lymphocytes (%) (Auto) 9.6 Monocytes (%) (Auto) 15.0 Eosinophils (%) (Auto) 2.0 Basophils (%) (Auto) 0.5 Neutrophils # (Auto) 4.7 Lymphocytes # (Auto) 0.6 Monocytes # (Auto) 1.0 Eosinophils # (Auto) 0.1 Basophils # (Auto) 0.0 CBC Comment DIFF FINAL Differential Comment Prothrombin Time 12.7 Prothromb Time International Ratio 1.1 Activated Partial Thromboplast Time 30.3 Blood Urea Nitrogen 27 Creatinine 1.50 Random Glucose 83 Total Protein 7.1 Albumin 4.0 Calcium Level 8.9 Magnesium Level 2.3 Alkaline Phosphatase 72 Aspartate Amino Transf (AST/SGOT) 18 Alanine Aminotransferase (ALT/SGPT) 22 Total Bilirubin 0.6 Sodium Level 139 Potassium Level 4.1 Chloride Level 105 Carbon Dioxide Level 24.0 Anion Gap 10 Estimat Glomerular Filtration Rate 44 Total Creatine Kinase 125 Creatine Kinase MB 3.4 Troponin I 0.05 B-Type Natriuretic Peptide 370 Blood Gas Puncture Site LT BRACHIAL Blood Gas Patient Temperature 98.6 Blood Gas HCO3 23 Blood Gas Base Excess -0.7 Blood Gas Oxygen Saturation 92 Arterial Blood pH 7.43 Arterial Blood Partial Pressure CO2 35 Arterial Blood Partial Pressure O2 71 Arterial Blood Oxygen Content 12.0 Arterial Blood Carboxyhemoglobin 1.8 Arterial Blood Methemoglobin 0.3 Blood Gas Hemoglobin 9.2 Oxygen Delivery Device NASAL CANNULA Blood Gas Liter Flow 2 Result Diagram: 10/20/16 1501 10/20/16 1501 Imaging Chest x-ray image as mentioned EKG tracing interpreted by me with Keeley bridges with nonspecific ST-T changes Caprini VTE Risk Assessment Caprini VTE Risk Assessment: Mod/High Risk (score >= 2) Caprini Risk Assessment Model Point Value = 1 Point Value = 2 Point Value = 3 Point Value = 5 Age 41-60 Minor surgery BMI > 25 kg/m2 Swollen legs Varicose veins or History of unexplained or recurrent spontaneous Oral contraceptives or hormone replacement Sepsis (< 1 month) Serious lung disease, including pneumonia (< 1 month) Abnormal pulmonary function Acute myocardial infarction Congestive heart failure (< 1 month) History of inflammatory bowel disease Medical patient at bed rest Age 61-74 Arthroscopic surgery Major open surgery (> 45 min) Laparoscopic surgery (> 45 min) Malignancy Confined to bed (> 72 hours) Immobilizing plaster cast Central venous access Age >= 75 History of VTE Family history of VTE Factor V Leiden Prothrombin [id number] Lupus anticoagulant Anticardiolipin antibodies Elevated serum homocysteine Heparin-induced thrombocytopenia Other congenital or acquired thrombophilia Stroke (< 1 month) Elective arthroplasty Hip, pelvis, or leg fracture Acute spinal cord injury (< 1 month) Prophylaxis Regimen Total Risk Factor Score Risk Level Prophylaxis Regimen 0-1 Low Early ambulation 2 Moderate Order ONE of the following: *Sequential Compression Device (SCD) *Heparin 5000 units SQ BID 3-4 Higher Order ONE of the following medications: *Heparin 5000 units SQ TID *Enoxaparin/Lovenox 40 mg SQ daily (WT < 150 kg, CrCl > 30 mL/min) *Enoxaparin/Lovenox 30 mg SQ daily (WT < 150 kg, CrCl > 10-29 mL/min) *Enoxaparin/Lovenox 30 mg SQ BID (WT < 150 kg, CrCl > 30 mL/min) AND/OR *Sequential Compression Device (SCD) 5 or more Highest Order ONE of the following medications: *Heparin 5000 units SQ TID (Preferred with Epidurals) *Enoxaparin/Lovenox 40 mg SQ daily (WT < 150 kg, CrCl > 30 mL/min) *Enoxaparin/Lovenox 30 mg SQ daily (WT < 150 kg, CrCl > 10-29 mL/min) *Enoxaparin/Lovenox 30 mg SQ BID (WT < 150 kg, CrCl > 30 mL/min) AND *Sequential Compression Device (SCD) Assessment and Plan Assessment and Plan This is a 86-year-old male with a history of systolic heart failure, COPD, chronic respiratory failure on 2 L nasal cannula, coronary artery disease status post stents /CABG, chronic kidney disease stage III, prostate cancer status post surgery, hyperlipidemia, GERD and hypertension. He presented to the emergency department complaining of progressive shortness of breath for the past week. He reports of dyspnea on exertion associated with wheezing, productive cough of clear phlegm. No fever or chills. He also reports of orthopnea and bilateral lower extremity swelling. He reports compliance with medical therapy. In the emergency department, he received 2 doses of nebulizations and IV Solu-Medrol. He feels better but still has significant dyspnea on exertion and recommended hospitalization for further evaluation and treatment. Acute on chronic systolic heart failure exacerbation. Start diuresis with IV Lasix 20 mg daily with potassium supplementation. CHF education, I/O and monitor weight. Obtain echocardiogram results performed tree was ago from patient's electronic repair troubleshooter COPD exacerbation with chronic respiratory failure. Continue nebulizations, steroids, oxygen and start Zosyn and Zithromax to cover possible hospital- acquired pneumonia. Influenza screen, sputum culture, pneumococcal and Legionella urinary antigen. Uncontrolled hypertension. Patient will be on daily IV Lasix. Restart bystolic. Monitor with as needed antihypertensives Chronic kidney disease stage III. Nonoliguric. Monitor renal function while on IV diuresis DVT prophylaxis. Patient on Eliquis Code Status Intubation only per patient's request Discussed Condition With Patient and daughter Yamil Kramer MD Oct 20, 2016 20:19
[2016-10-20] MEDS: FUROSEMIDE 20 MG/2 ML VIAL IV PUSH SCH (20:37)
[2016-10-20] MEDS: AZITHROMYCIN 250 MG TAB PO SCH (20:37)
[2016-10-20] MEDS: DOCUSATE SODIUM 50 MG/SENNA 8.6 MG TAB PO SCH (21:00)
[2016-10-20] MEDS: SODIUM CHLORIDE 0.9% FLUSH 10 ML FLUSH IV FLUSH SCH (21:00)
[2016-10-20] MEDS ORDERED: traZODone HCL 50 MG TAB PO SCH (21:00)
[2016-10-20] MEDS: RESP: ALBUTEROL CONC 2.5 MG/0.5 ML NEB NEB SCH (21:01)
[2016-10-20] MEDS: PIPERACIL-TAZO 4.5 GM PREMIX 100 ML IV SCH (22:18)
[2016-10-20] MEDS: predniSONE 20 MG TAB PO SCH (22:18)
[2016-10-20] MEDS: APIXABAN 2.5 MG TABLET PO SCH (22:18)
[2016-10-20] MEDS: SPIRONOLACTONE 25 MG TAB PO SCH (22:18)
[2016-10-20] MEDS: MEMANTINE HCL 5 MG TAB PO SCH (22:19)
[2016-10-20] MEDS: PANTOPRAZOLE SOD 40 MG DELAYED RELEASE TAB PO SCH (22:19)
[2016-10-21 00:45] VITALS: PULSE 72
[2016-10-21] MEDS: PIPERACIL-TAZO 4.5 GM PREMIX 100 ML IV SCH ×2 (02:59→11:14)
[2016-10-21 03:30] VITALS: BP 135/65; PULSE 80; RESP 18; TEMP 98.3; O2SAT 97
[2016-10-21 04:00] VITALS: PULSE 72
[2016-10-21 07:42] VITALS: BP 161/67; PULSE 73; RESP 21; TEMP 97.4; O2SAT 99
[2016-10-21] MEDS: RESP: ALBUTEROL CONC 2.5 MG/0.5 ML NEB NEB SCH (07:47)
[2016-10-21 07:49] VITALS: O2SAT 96
[2016-10-21] MEDS ORDERED: POTASSIUM CHLORIDE 20 MEQ CONTROLLED RELEASE TAB PO SCH (09:00)
[2016-10-21] MEDS ORDERED: PROBIOTIC PRODUCT PO SCH (09:00)
[2016-10-21] MEDS: SERTRALINE HCL 50 MG TAB PO SCH ×2 (09:00→10:46)
[2016-10-21] MEDS: DOCUSATE SODIUM 50 MG/SENNA 8.6 MG TAB PO SCH ×2 (09:00→10:39)
[2016-10-21] MEDS ORDERED: UMECLIDINIUM 62.5 MCG/VILANTEROL 25 MCG INHALER INH SCH (09:00)
[2016-10-21] MEDS ORDERED: NEBIVOLOL 5 MG TAB PO SCH (09:00)
[2016-10-21] MEDS ORDERED: ROSUVASTATIN 20 MG PO SCH (09:00)
--- NOTE | 2016-10-21 09:53 | HHI.PR ---
Subjective Remarks Follow-up for CHF exacerbation, COPD exacerbation, possible pneumonia. The patient reports feeling much better today. He reports an occasional nonproductive cough. Denies any fevers or chills. Denies any shortness of breath or chest pain. He states yesterday he could not even take a deep breath. He walked approximately ten steps down the hallway today without any difficulties. Objective Vitals Vital Signs Date Time Temp Pulse Resp B/P (MAP) Pulse Ox O2 Delivery O2 Flow Rate FiO2 10/21/16 07:49 96 Nasal Cannula 3.00 10/21/16 07:42 97.4 73 21 161/67 (98) 99 10/21/16 04:00 72 10/21/16 03:30 98.3 80 18 135/65 (88) 97 10/21/16 00:45 72 10/20/16 23:00 97.5 86 18 133/63 (86) 96 10/20/16 21:44 91 18 169/102 (124) 98 10/20/16 21:05 88 18 180/85 (116) 98 Nasal Cannula 3.00 10/20/16 21:02 96 Nasal Cannula 3.00 10/20/16 19:24 88 22 186/86 (119) 97 Nasal Cannula 3.00 10/20/16 18:29 78 20 172/83 (112) 98 Nasal Cannula 3.00 10/20/16 17:35 95 Nasal Cannula 2.00 10/20/16 14:59 64 22 188/88 (121) 100 Nasal Cannula 3.00 10/20/16 14:22 97.4 76 36 121/59 (79) 90 Nasal Cannula I/O 10/20/16 10/20/16 10/20/16 10/21/16 10/21/16 10/21/16 07:00 15:00 23:00 07:00 15:00 23:00 Intake Total 100 ml 100 ml Output Total 250 ml Balance 100 ml -150 ml IV Total 100 ml 100 ml Output Urine Total 250 ml # Voids 2 Result Diagram: 10/20/16 1501 10/20/16 1501 Imaging 10/20/16 - CXR shows COPD; cardiomegaly with bilateral patchy airspace disease and minimal right pleural effusion. Objective Remarks GENERAL: Well-nourished, well-developed elderly male patient in NAD. Sitting upright in bed, eating breakfast. SKIN: Warm and dry. No rash. HEENT: Normocephalic. Atraumatic. Pupils equal and round. Mucous membranes pink and moist. NECK: Supple. Trachea midline. CARDIOVASCULAR: Regular rate and rhythm. S1, S2 noted. No murmur appreciated. RESPIRATORY: No accessory muscle use. Clear to auscultation. Breath sounds equal bilaterally. GASTROINTESTINAL: Abdomen soft, non-tender, nondistended. Normoactive bowel sounds x4. MUSCULOSKELETAL: No obvious deformities. Extremities without clubbing, cyanosis , or edema. NEUROLOGICAL: Awake and alert. No obvious cranial nerve deficits. Motor grossly within normal limits. Normal speech. PSYCHIATRIC: Appropriate mood and affect; insight and judgment normal. Medications and IVs Current Medications Medications (Trade) Dose Ordered Sig/Tianna Route Start Time Stop Time Status Last Admin (NS Flush) 2 ml UNSCH PRN IV FLUSH 10/20/16 19:30 10/21/16 02:59 (NS Flush) 2 ml BID IV FLUSH 10/20/16 21:00 10/21/16 10:42 (Apresoline Inj) 10 mg Q6H PRN IV 10/20/16 20:00 (Eliquis) 2.5 mg BID PO 10/20/16 21:00 10/21/16 10:39 (Namenda) 5 mg BID PO 10/20/16 21:00 10/21/16 10:39 (Bystolic) 5 mg DAILY PO 10/21/16 09:00 10/21/16 10:42 (Protonix) 40 mg BID PO 10/20/16 21:00 10/21/16 10:38 (KCl) 20 meq DAILY PO 10/21/16 09:00 10/21/16 10:46 (Aldactone) 25 mg BID PO 10/20/16 21:00 10/21/16 10:46 (Desyrel) 50 mg HS PO 10/20/16 21:00 10/20/16 22:18 Patient Own Medication PT OWN MED: Rosuvastatin (Crest... DAILY PO 10/21/16 09:00 Future Hold (Zoloft) 25 mg DAILY PO 10/21/16 09:00 (Lasix Inj) 20 mg DAILY IV PUSH 10/20/16 20:00 10/21/16 10:40 (Albuterol Neb) 2.5 mg Q2HR NEB PRN INH 10/20/16 20:00 (Deltasone) 40 mg DAILY PO 10/20/16 20:00 10/21/16 10:45 Piperacillin Sod/ Tazobactam Sod 100 ml @ 200 mls/hr Q6H IV 10/20/16 21:00 10/21/16 11:14 (Zithromax) 500 mg DAILY PO 10/20/16 20:15 10/21/16 10:40 (Tylenol) 650 mg Q4H PRN PO 10/20/16 20:15 (Zofran Inj) 4 mg Q6H PRN IVP 10/20/16 20:15 (Tylenol) 650 mg Q6H PRN PO 10/20/16 20:15 (Narcan Inj) 0.4 mg UNSCH PRN IV 10/20/16 20:15 (Constance-Colace) 1 tab BID PO 10/20/16 21:00 (Senokot) 17.2 mg Q12H PRN PO 10/20/16 20:15 (Lactulose Liq) 30 ml DAILY PRN PO 10/20/16 20:15 (Albuterol Neb) 2.5 mg QID NEB NEB 10/21/16 12:00 10/21/16 11:53 A/P Assessment and Plan 86-year-old male with a history of CHF, COPD, chronic respiratory failure on 2 L NC, CAD s/p stents/CABG, CKD stage III, prostate cancer s/p resection, HTN, HLD, GERD presents with progressive SOB x1week. Acute on chronic diastolic heart failure exacerbation with valvular cardiomyopathy: Obtained outpatient records from Dr. Barajas's office, Echocardiogram 09/17/16 showed diastolic dysfunction, severely dilated right ventricle, moderate MR, mod-severe TR, normal systolic function. EF 55% Started diuresis with IV Lasix 20 mg daily with KCl replacement. CHF education , I/O and monitor weight. Patient much improved. Acute COPD exacerbation with chronic respiratory failure: CXR shows COPD changes. Continue nebulizations, prednisone 40mg daily, O2 as needed. Started on IV Zosyn and Zithromax to cover possible hospital-acquired pneumonia. Influenza screen negative. Patient much improved, stable for discharge. Uncontrolled hypertension: Patient will be on daily IV Lasix. Restarted bystolic. Monitor BP, much improved. Chronic kidney disease stage III. Nonoliguric. Monitor renal function while on IV diuresis. DVT prophylaxis. Patient on Eliquis Discharge Planning Discharge patient to home with [facility] Condition on discharge: Improved Heart Healthy Diet as tolerated Ad Lorie activity Rx written: Levofloxacin 750mg qd x5days, Lasix 20mg daily, Albuterol nebs q6h, Prednisone 40mg daily x5days Follow-up with primary care physician Dr. Calvert within 1 week Priyanka Barth PA-C Oct 21, 2016 9:53 am
[2016-10-21] MEDS: PANTOPRAZOLE SOD 40 MG DELAYED RELEASE TAB PO SCH (10:38)
[2016-10-21] MEDS: MEMANTINE HCL 5 MG TAB PO SCH (10:39)
[2016-10-21] MEDS: APIXABAN 2.5 MG TABLET PO SCH (10:39)
[2016-10-21] MEDS: FUROSEMIDE 20 MG/2 ML VIAL IV PUSH SCH (10:40)
[2016-10-21] MEDS: AZITHROMYCIN 250 MG TAB PO SCH (10:40)
[2016-10-21] MEDS: SODIUM CHLORIDE 0.9% FLUSH 10 ML FLUSH IV FLUSH SCH (10:42)
[2016-10-21] MEDS: predniSONE 20 MG TAB PO SCH (10:45)
[2016-10-21] MEDS: SPIRONOLACTONE 25 MG TAB PO SCH (10:46)
[2016-10-21 11:15] VITALS: BP 129/63; PULSE 72; RESP 18; TEMP 98.1; O2SAT 99
[2016-10-21] MEDS ORDERED: RESP: ALBUTEROL 2.5 MG/3 ML NEB (SCH) NEB (12:00)
[2016-10-21 12:15] LABS: BICARBONATE 25.5 MEQ/L (21.0-32.0); POTASSIUM 3.7 MEQ/L (3.5-5.1)
--- NOTE | 2016-10-21 13:18 | HHI.FF ---
Face to Face Verification Diagnosis: (1) Healthcare-associated pneumonia (2) Acute on chronic diastolic (congestive) heart failure (3) COPD exacerbation (4) Chronic kidney disease (5) Hypertension (6) GERD (gastroesophageal reflux disease) (7) Hyperlipidemia (8) CAD (coronary artery disease) (9) Hx of CABG (10) H/O heart artery stent Physical Therapy Order: Evaluate and Treat, Improve ambulation, Strength and gait training Home Health Nursing Order: Medical education Signs/symptoms of disease process Oxygen administration education Nursing assessment with vital signs [employer] Order: To Evaluate: Support services Order: To Provide: Long range planning, Community services I have seen patient Jose Bernard on 10/21/16. My clinical findings support the need for the requested home health care services because: Ltd mobility - disease progression Patient has SOB Deconditioned w/ increased weakness Limited ability to care for self I certify that my clinical findings support that this patient is homebound because: Hx COPD- exertion dyspnea/weakness Unsafe to leave home unassisted Priyanka Barth PA-C Oct 21, 2016 1:18 pm
[2016-10-21] MEDS ORDERED: PRED20 PO (13:27)
[2016-10-21] MEDS ORDERED: ALBU.5I NEB (13:27)
[2016-10-21] MEDS ORDERED: FURO20TA PO (13:27)
[2016-10-21] MEDS ORDERED: LEVO750T3 PO (13:27)
--- NOTE | 2016-10-21 13:45 | EKG ---
Date Performed: 10/20/2016 Time Performed: 14:59:07 PTAGE: 86 years EKG: ATRIAL FIBRILLATION LEFT ANTERIOR FASCICULAR BLOCK NONSPECIFIC ST & T-WAVE ABNORMALITY ABNO RMAL ECG Compared to prior tracing no significant change PREVIOUS TRACING : 07/09/2016 13.04 DOCTOR: Joyce Ambrosio Interpretating Date/Time 10/21/2016 13:41:32
== END 2016-10-21 15:05 | disposition home or self-care (01) ==
LOC: NEPE 14:19 → NEDA 19:07 → NEPHCDU 22:47
PROVIDERS: ADMIT Hospitalist; ATTEND Hospitalist
DX: I50.43 Acute on chronic combined systolic (congestive) and diastolic (congestive) heart failure (principal); I42.9 Cardiomyopathy, unspecified; J44.1 Chronic obstructive pulmonary disease with (acute) exacerbation; J96.10 Chronic respiratory failure, unspecified whether with hypoxia or hypercapnia; I25.10 Atherosclerotic heart disease of native coronary artery without angina pectoris; I13.0 Hypertensive heart and chronic kidney disease with heart failure and stage 1 through stage 4 chronic kidney disease, or unspecified chronic kidney disease; N18.3 Chronic kidney disease, stage 3 (moderate); C61 Malignant neoplasm of prostate; E78.5 Hyperlipidemia, unspecified; K21.9 Gastro-esophageal reflux disease without esophagitis; Z79.01 Long term (current) use of anticoagulants; Z79.899 Other long term (current) drug therapy; Z95.5 Presence of coronary angioplasty implant and graft; Z95.1 Presence of aortocoronary bypass graft; Z99.81 Dependence on supplemental oxygen; Z87.891 Personal history of nicotine dependence
CPT/HCPCS: 36600; 71020; 80048; 80053; 82550; 82552; 82805; 83735; 83880; 84484; 85025; 85610; 85730; 87804; 93005; 94640; 94664; 96365; 96366; 96375; 96376; 99285; G0378; J1940; J1956; J2543; J2930; J7512; J7611; J7613